=== PATIENT | female | born 1970 | race Caucasian/White ===

== ENCOUNTER 2022-03-26 11:24 | Outpatient (CLI) | payer BC, SELFPAY ==
[2022-03-26 20:14] LABS: Kit Draw Collected
== END 2022-03-26 11:25 | disposition home or self-care (01) ==
LOC: ANHGOSHLAB 11:26
PROVIDERS: PCP Family Medicine; Visit Provider Family Medicine
DX: Z00.00 Encounter for general adult medical examination without abnormal findings (principal); E03.9 Hypothyroidism, unspecified
CPT/HCPCS: 36415

== ENCOUNTER 2022-04-03 13:39 | Outpatient (CLI) | payer BC, SELFPAY ==
[2022-04-03 16:00] LABS: Kit Draw Collected
== END 2022-04-03 13:40 | disposition home or self-care (01) ==
LOC: ANHGOSHLAB 13:40
PROVIDERS: PCP Family Medicine; Visit Provider Family Medicine
DX: E78.2 Mixed hyperlipidemia (principal)
CPT/HCPCS: 36415

== ENCOUNTER 2023-07-11 10:26 | Emergency (ER) | payer BC, SELFPAY ==
[2023-07-11 10:39] VITALS: BP 109/79; PULSE 82; RESP 16; TEMP 36.4; O2SAT 100
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
[2023-07-11] MEDS: ONDANSETRON HCL ODT 4 MG TABLET SUBLINGUAL (11:27)
[2023-07-11] MEDS: predniSONE 20 MG TABLET 40 MG PO (11:28)
[2023-07-11] MEDS: MECLIZINE HCL 25 MG TABLET PO (11:29)
== END 2023-07-11 12:00 | disposition home or self-care (01) ==
PROVIDERS: Emergency Provider Nurse Practitioner Family; PCP Family Medicine
DX: R42 Dizziness and giddiness (principal); E03.9 Hypothyroidism, unspecified
CPT/HCPCS: 99213; A9270; G0463; J7512

== ENCOUNTER 2023-10-14 11:54 | Outpatient (CLI) | payer BC, SELFPAY ==
--- NOTE | ~2023-10-14 | MM_ITS ---
EXAMINATION: MM screening corry BI w edgard HISTORY: Screening TECHNIQUE: Craniocaudal and mediolateral oblique 3-D tomosynthesis images were obtained and synthetic 2-D images were generated. CAD analysis was submitted and interpreted. COMPARISON: No prior mammogram is available for comparison at this institution. BREAST PARENCHYMAL COMPOSITION: Dense: The breasts are extremely dense, which lowers the sensitivity of mammography. FINDINGS: There is no evidence of suspicious mass, calcification, or architectural distortion to sugg est malignancy in either breast. There has been no suspicious interval change. IMPRESSION: 1. No mammographic evidence of malignancy. 2. Recommend routine screening mammography in one year. BI-RADS Category 1: Negative Reviewed, dictated and finalized at location B.
== END 2023-10-14 11:55 | disposition home or self-care (01) ==
PROVIDERS: PCP Family Medicine; Visit Provider Family Medicine
DX: Z12.31 Encounter for screening mammogram for malignant neoplasm of breast (principal)
CPT/HCPCS: 77063; 77067

== ENCOUNTER 2023-12-03 23:42 | Emergency (ER) | payer BC, SELFPAY ==
[2023-12-03 23:45] VITALS: BP 116/75; PULSE 67
[2023-12-03 23:53] VITALS: BP 130/75; PULSE 89; TEMP 36.5; O2SAT 97
[2023-12-03 23:54] LABS: BEDSIDEPREGUCG Negative (Negative)
[2023-12-03 23:57] VITALS: BP 130/75; PULSE 80; RESP 16; TEMP 36.7; O2SAT 97
[2023-12-04 00:04] LABS: Basophils Percent Auto 0.4 % (0.2-1.2); Eosinophils Absolute Auto 0.4 K/mm3 (0-0.3); Eosinophils Percent Auto 3.3 % (0-4.4); Hematocrit 43.9 % (37.0-47.0); Hemoglobin 14.8 g/dL (12.0-15.0); Immature Granulocyte Absolute 0.04 K/mm3 (0.00-0.031); Immature Granulocyte Percent A 0.4 % (0-0.5); Lymphocytes Percent Auto 25.9 % (18.3-44.2); Mean Corpuscular HGB Conc 33.7 g/dl (32-36); Mean Platelet Volume 8.8 fl (7.4-10.4); Monocytes Percent Auto 9.2 % (2.6-8.5); Neutrophils Absolute Auto 6.8 K/mm3 (1.3-6.7); Neutrophils Percent Auto 60.8 % (45.5-73.1); Platelet Count Result 352 k/mm3 (150-375); Red Blood Count 4.93 M/mm3 (4.2-5.4); Red Cell Distribution Width 13.1 % (11.5-14.5); White Blood Count 11.2 K/mm3 (4.5-10.0)
--- NOTE | 2023-12-04 00:05 | ED.GENADULT ---
HPI - General Adult General Chief complaint: Nausea/Vomiting/Diarrhea Stated complaint: n/v, chills/fever Time Seen by Provider: 12/03/23 23:44 History of Present Illness HPI narrative: 53-year-old female presenting to the emergency department for evaluation for acute onset of dizziness. Patient states that she has had previous issues with vertigo but they resolved on her own. Patient did have you go yesterday and states that her symptoms started after doing yoga. Patient describes some mild dizziness but then today had worsening dizziness with associated nausea and vomiting. Patient denies any associated numbness or weakness. Patient denies any prior history of CVA. Related Data Home Medications Medication Instructions Recorded Confirmed clindamycin 1.2 % (1 % topical 08/27/23 10/29/23 base)-benzoyl peroxide 5 % topical gel clobetasol 0.05 % topical ointment topical 08/27/23 10/29/23 tazarotene 0.05 % topical cream applic topical 08/27/23 10/29/23 (Tazorac) Allergies Allergy/AdvReac Type Severity Reaction Status Date / Time No Known Allergies Allergy Verified 10/29/23 12:58 Review of Systems Review of Systems: All systems reviewed & are unremarkable except as noted in HPI and below PMFSH Past Medical History Medical History Carpal tunnel syndrome, bilateral upper limbs delivery delivered Hypothyroidism (acquired) Menometrorrhagia Seasonal allergic rhinitis Telogen effluvium Surgical History Surgical History History of cholecystectomy Family History Family History Grandparent Family history of Alzheimer's disease Mother Patient's mother is in good health Family history of alcoholism Father Patient's father is in good health Family history of alcoholism Family history of diabetes mellitus in first degree relative Sibling Patient's brother is in good health Social History Social History Smoking status: Never smoker Alcohol intake: current Substance use: never Lack of Transportation: No Lack of Food: Never True Current Housing: I Have Housing Concerned About Future Housing: No Difficulty Paying Gas/Electric Bills: No Difficulty Paying for Meds: No Currently Unemployed: No Difficulty w/ Childcare or Family Care: No Exam Narrative: APPEARANCE: Well appearing, no pain, no distress, well-nourished. HEAD: normocephalic, atraumatic. EYES: PERRLA/EOMI, conjunctivae clear. NOSE: Normal no drainage EARS:TMS clear with good light reflex. THROAT: Pharynx clear, no exudate. NECK: Supple. No adenopathy, no masses. RESPIRATORY: Airway patent, respirations nonlabored. Clear to auscultation bilaterally, no rales, rhonchi, wheezing. CARDIOVASCULAR: Regular rate and rhythm without murmurs rubs or gallops. ABDOMINAL: Soft, nontender, nondistended, normal bowel sounds MUSCULOSKELETAL: Moves all extremities. Strength/ROM intact, No edema, No calf tenderness. NEURO: Alert. Cranial nerves II through XII intact. Good gait. Good coordination SKIN: Warm, dry. Normal Color Course Course Emergency Course: Patient felt improved with treatment was discharged home. Vital Signs Vital signs: Vital Signs Pulse Rate 67 12/03/23 23:45 Blood Pressure 116/75 12/03/23 23:45 Temperature 98.3 F 12/04/23 01:21 Pulse Rate 75 12/04/23 01:21 Respiratory Rate 16 12/04/23 01:21 Blood Pressure 108/73 12/04/23 01:21 Pulse Oximetry 97 12/04/23 01:21 Oxygen Delivery Room Air 12/03/23 23:57 Medical Decision Making [facility] Narrative Medical decision making narrative: A 53-year-old female present to the emergency department for evaluation for dizziness. Patient does describe benign positional vertigo which is most like
[2023-12-04 00:10] LABS: Add Urine Microscopic? YES; Appearance Urine Turbid (Clear); Bacteria Urine 1+ /hpf; Bilirubin Urine Negative (Negative); Blood Urine Negative (Negative); Color Urine Yellow (Yellow); Glucose Urine UA Negative (Negative); Ketones Urine Trace mg/dL (Negative); Leukocyte Esterase Ur Trace LEU/UL (Negative); Nitrate Urine Negative (Negative); Protein Urine Trace mg/dL (Negative); Specific Grav Ur 1.022 (1.001-1.035); Squamous Epithelial Cell Urine Moderate /hpf (Few); WBC Urine 0-5 /hpf (0-3)
[2023-12-04 00:11] VITALS: BP 116/77; PULSE 68
[2023-12-04 00:13] VITALS: BP 106/85; PULSE 79
[2023-12-04 00:17] LABS: Alanine Aminotransferase 17 U/L (6-35); Albumin Level 4.7 g/dL (3.5-5.1); Alkaline Phosphatase 62 U/L (38-126); Anion Gap 16 mmol/L (4-12); Aspartate Amino Transferase 30 U/L (14-36); Bilirubin,Total 0.9 mg/dL (0.2-1.3); Blood Urea Nitrogen 15 mg/dL (7-17); Calcium 9.7 mg/dL (8.4-10.2); Carbon Dioxide 24 mmol/L (22-30); Chloride 93 mmol/L (98-107); Estimated CRCL calculation 73 ml/min; Estimated Glomerular Filt Rate > 60; Glucose 105 mg/dL (65-110); Lipase 243 U/L (23-300); Sodium 133 mmol/L (137-145)
[2023-12-04] MEDS: MECLIZINE HCL 25 MG TABLET PO (00:20)
[2023-12-04] MEDS: ONDANSETRON INJ 4 MG/2 ML VIAL IV PUSH (00:20)
[2023-12-04 00:29] LABS: Potassium 3.4 mmol/L (3.4-5.0)
[2023-12-04] MEDS: diazePAM INJ (*CRX) 10 MG/2 ML SYRINGE 2.5 MG IV PUSH (00:51)
[2023-12-04] MEDS: METOCLOPRAMIDE HCL INJ 10 MG/2 ML VIAL IV PUSH (00:51)
[2023-12-04 01:21] VITALS: BP 108/73; PULSE 75; RESP 16; TEMP 36.8; O2SAT 97
== END 2023-12-04 01:35 | disposition home or self-care (01) ==
PROVIDERS: Emergency Provider Emergency Medicine; PCP Family Medicine
DX: R42 Dizziness and giddiness (principal); E03.9 Hypothyroidism, unspecified
CPT/HCPCS: 36415; 80053; 81001; 81025; 83690; 85025; 96374; 96375; 99284; A9270; J2405; J2765; J3360

== ENCOUNTER 2024-03-23 09:00 | Outpatient (RCR) | payer BC, SELFPAY ==
--- NOTE | 2024-01-08 08:57 | OPREHPOC ---
Outpatient Therapy Plan of Care This is a Multidisciplinary Plan of Care that may contain components documented by all disciplines (PT, OT, and ST.) PT Problem 1 PT Problem #1 Knowledge Deficit PT Goal 1 Goal / Goal Update *indep with HEP Target Visit 8 PT Problem 2 PT Problem #2 Impaired Vestibular System PT Goal 1 Goal / Goal Update decrease in vestibular symptoms, to improve mobility and activity level: pt perform without any issues: 1* roll in supine R/L 2* walk 50' with head motions R and L 3x each 3* pt brain picker item off floor 4* Dizziness Handicap Index rating of 16. 5* further assessment of vestibular system as treatment progresses Target Visit 8
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
--- NOTE | 2024-02-19 09:17 | PCPTNOTE ---
Late entry for 01/28/24: Pt received STM to bilateral upper traps, levator scap, scalenes and fascia of scalp. Pt received a release with occipital release, 1st rib mobilization and passtive stretching for B UT and levator scap. STM was preformed to decrease tension, improve cervical mobility and to ease vestibular issues.
--- NOTE | 2024-03-16 12:02 | PCPTNOTE ---
Pt NS visit today, left message with next appt. day and time.
--- NOTE | 2024-03-23 09:47 | PTOPPROG ---
Assessment and note entered by Evin Leslie Assessment Status Progress ICD-10 Condition Codes (PT) Dizziness and Giddiness R42,BPPV H81.12 Onset 12-04-23 Subjective Information still having dizziness when lie down in bed and with turning my head to the L, last about 10 seconds; is doing the neck exercises and watching her posture; have not tried the maneuver at home for dizziness- did initially and it did not help, so did not try again; have not returned to yoga and exercises, afraid it will cause a full, blown out dizziness episode. Allergies have been doing OK, some dryness with sleeping. Assessment PT Clinical Summary Nitza has received 6 PT sessions, from January 07 to today; she did not show for one appointment Treatment for vestibular issues and cervical pain. She has not yet returned to her normal fitness and activity level due to afraid of a full blown dizziness episode. Compared to the initial evaluation: no longer reports any cervical pain; Dizziness Handicap Index rating from 50% to 36% limitation in activity level; reports she continues to have dizziness with turning to L in bed and with lying down in bed; With the reassessment: she had unsteady feeling with leaning forward to pick something up off the floor; dizziness reported with mobility of walking and looking up, 360' turn to the L, rolling over in bed. Skilled PT services to continue for vestibular treatment for BPPV. Plan of Care Interventions Neuro Re-education,Patient/Caregiver Education, Therapeutic Activities,Therapeutic Exercise PT Services Indicated Yes Treatment Frequency and 1-2x/wk for 6 visits Duration These treatments will address the objective and functional deficits as defined above. The patient will be advanced safely and appropriately in order for the patient to progress towards his/her prior level of function. Additional exercises will be introduced and as well as a comprehensive home exercise program upon discharge, if needed, ?to ensure carryover of functional gains achieved in the clinic. This treatment plan has been reviewed and agreement upon by the patient.
--- NOTE | 2024-03-23 09:48 | OPREHPOC ---
Outpatient Therapy Plan of Care This is a Multidisciplinary Plan of Care that may contain components documented by all disciplines (PT, OT, and ST.) PT Problem 1 PT Problem #1 Knowledge Deficit PT Goal 1 Goal / Goal Update *indep with HEP 03-23-24 progress goal met; continue towards goal Target Visit 12 PT Problem 2 PT Problem #2 Impaired Vestibular System PT Goal 1 Goal / Goal Update decrease in vestibular symptoms, to improve mobility and activity level: pt perform without any issues: 1* roll in supine R/L 2* walk 50' with head motions R and L 3x each 3* pt pickle pumper item off floor 4* Dizziness Handicap Index rating of 16. 5* further assessment of vestibular system as treatment progresses 03-23-24 progress goals 2,5 met continue towards goals Target Visit 12
--- NOTE | 2024-03-29 14:21 | PCPTNOTE ---
This treatment is being continued on visit number [id number] Please see documentation on both accounts to view progress. Completed interventions, outcomes, and problems have been marked as Inactive to facilitate the copying of the Care plan routine for recurring accounts.
== END 2024-03-29 11:32 | disposition home or self-care (01) ==
LOC: ANHPT 09:00
PROVIDERS: PCP Family Medicine; Visit Provider Family Medicine
DX: H81.12 Benign paroxysmal vertigo, left ear (principal)
CPT/HCPCS: 95992; 97110; 97140; 97161; 97530

== ENCOUNTER 2024-04-07 01:01 | Day surgery (SDC) | payer BC, SELFPAY ==
[2024-03-24 13:25] VITALS: BMI 25.8
[2024-04-07 08:51] VITALS: BP 121/71; PULSE 98; RESP 18; TEMP 36.6; O2SAT 97
[2024-04-07] MEDS: LACTATED RINGERS 1,000 ML 150 ML IV CONT (09:06)
--- NOTE | 2024-04-07 09:17 | SUR.PREOP ---
pt unable to give a urine specimen. Hx of tubal ligation. Anesthesia notified. No urine needed per anesthesia.
--- NOTE | 2024-04-07 09:20 | P.PNAN_ITS ---
Anes - Initial Pre Proc Eval Procedure: Operation Date: 04/07/24 10:00 Proposed Procedures p Screening Colonoscopy - Koby Gil MD Date/Time: 04/07/24 09:20 Surgeon: Koby Gil MD Pre Op Diagnosis: screening colon Patient Data Age: 53 Gender: F Height: 1.65 m Weight: 70.6 kg Last Vital Signs Temp 36.6 C 04/07/24 08:51 Pulse 98 04/07/24 08:51 Resp 18 04/07/24 08:51 BP 121/71 04/07/24 08:51 Pulse Ox 97 04/07/24 08:51 O2 Del Method Room Air 04/07/24 08:51 Allergies Allergy/AdvReac Type Severity Reaction Status Date / Time No Known Allergies Allergy Verified 04/07/24 08:50 Home Medications ?Medication ?Instructions ?Recorded ?Confirmed ?Type bupropion HCl 300 mg 24 hr tablet, 300 mg PO QAM #90 tabs 08/27/23 04/07/24 Rx extended release clobetasol 0.05 % topical ointment 1 applic topical WEEKLY PRN 08/27/23 04/07/24 History vaginal dryness sertraline 50 mg tablet 50 mg PO DAILY #90 tabs 08/27/23 04/07/24 Rx tazarotene 0.05 % topical cream 1 applic topical DAILY PRN 08/27/23 03/25/24 History (Tazorac) psoriasis meclizine 25 mg tablet 25 mg PO TID PRN dizziness #20 tabs 12/04/23 03/25/24 Rx ondansetron 4 mg disintegrating 4 mg PO Q8H PRN nausea and 12/04/23 03/25/24 Rx tablet vomiting #14 tabs triamterene 37.5 See Rx Instructions .Route 01/30/24 04/07/24 Rx mg-hydrochlorothiazide 25 mg .COMPLEX #90 caps capsule Patient hx anesthesia problems: none Family hx anesthesia problems: none Results Review: All pre-operative results and documents have been reviewed as part of the pre- operative evaluation. [facility] Past Medical History Medical History Mixed hyperlipidemia Anxiety delivery delivered Carpal tunnel syndrome, bilateral upper limbs Hypothyroidism (acquired) Menometrorrhagia Seasonal allergic rhinitis Telogen effluvium Surgical History Surgical History History of cholecystectomy Family History Family History Grandparent Family history of Alzheimer's disease Mother Patient's mother is in good health Family history of alcoholism Father Patient's father is in good health Family history of alcoholism Family history of diabetes mellitus in first degree relative Sibling Patient's brother is in good health Social History Social History Smoking status: Never smoker Alcohol intake: current Substance use: never Substance use type: marijuana Other substance usage details: edibles Lack of Transportation: No Lack of Food: Never True Current Housing: I Have Housing Concerned About Future Housing: No Difficulty Paying Gas/Electric Bills: No Difficulty Paying for Meds: No Currently Unemployed: No Difficulty w/ Childcare or Family Care: No Living arrangements: with family Spiritual care concerns: No Anes - Eval Final PreProcedure Day of Procedure 04/07/24 09:20 Patient weight: overweight Heart: regular rate and rhythm Lungs: clear to auscultation Airway: Mallampati scale class II Neurological: alert and oriented Last oral intake: >/= 8 hours ASA classification: II Emergent: no Anesthetic plan: proceed Anesthesia type and monitoring: general GIVS Results Review: All pre-operative results and documents have been reviewed as part of the pre- operative evaluation. Informed Consent: The patient's anesthetic plan and its attendant risks and benefits were discussed with the patient/family/POA. Questions were solicited and answers provided to the satisfaction of the patient/family/POA.
--- NOTE | 2024-04-07 09:22 | PM.HPGS ---
History of Present Illness History of Present Illness Consent: Risks, benefits, and alternatives have been discussed and questions answered. Patient agrees to proceed with procedure. Chief complaint: screening colon Narrative: Nitza Babin is a 53 year old female with colon polyp when had first colonoscopy, second one about 4 years ago without any, here to repeat another colonoscopy Review of Systems Review of Systems: All systems reviewed & are unremarkable except as noted in HPI and below PMFSH Past Medical History Medical History Mixed hyperlipidemia Anxiety delivery delivered Carpal tunnel syndrome, bilateral upper limbs Hypothyroidism (acquired) Menometrorrhagia Seasonal allergic rhinitis Telogen effluvium Surgical History Surgical History History of cholecystectomy Family History Family History Grandparent Family history of Alzheimer's disease Mother Patient's mother is in good health Family history of alcoholism Father Patient's father is in good health Family history of alcoholism Family history of diabetes mellitus in first degree relative Sibling Patient's brother is in good health Social History Social History Smoking status: Never smoker Alcohol intake: current Substance use: never Substance use type: marijuana Other substance usage details: edibles Lack of Transportation: No Lack of Food: Never True Current Housing: I Have Housing Concerned About Future Housing: No Difficulty Paying Gas/Electric Bills: No Difficulty Paying for Meds: No Currently Unemployed: No Difficulty w/ Childcare or Family Care: No Living arrangements: with family Spiritual care concerns: No Meds Home Medications and Allergies Home Medications ?Medication ?Instructions ?Recorded ?Confirmed ?Type bupropion HCl 300 mg 24 hr tablet, 300 mg PO QAM #90 tabs 08/27/23 04/07/24 Rx extended release clobetasol 0.05 % topical ointment 1 applic topical WEEKLY PRN 08/27/23 04/07/24 History vaginal dryness sertraline 50 mg tablet 50 mg PO DAILY #90 tabs 08/27/23 04/07/24 Rx tazarotene 0.05 % topical cream 1 applic topical DAILY PRN 06/12/24 01/09/25 History (Tazorac) psoriasis meclizine 25 mg tablet 25 mg PO TID PRN dizziness #20 tabs 12/04/23 03/25/24 Rx ondansetron 4 mg disintegrating 4 mg PO Q8H PRN nausea and 12/04/23 03/25/24 Rx tablet vomiting #14 tabs triamterene 37.5 See Rx Instructions .Route 01/30/24 04/07/24 Rx mg-hydrochlorothiazide 25 mg .COMPLEX #90 caps capsule Allergies Allergy/AdvReac Type Severity Reaction Status Date / Time No Known Allergies Allergy Verified 04/07/24 08:50 Vital Signs Vital Signs - 24 hr 04/07/24 08:51 Temperature 97.8 F Pulse Rate 98 Respiratory Rate 18 Blood Pressure 121/71 Pulse Oximetry 97 Oxygen Delivery Room Air Exam Const: General: comfortable and no acute distress HENMT: Face/Nose/Sinus: Normal nares present Eyes: General: appearance normal, both eyes and all related structures Neck: Neck: no JVD Resp: Auscultation: clear to auscultation bilaterally Cardio: Rate: regular rate Rhythm: regular rhythm GI: Inspection: non-distended GI Palp: Yes Soft to palpation Skin: General skin exam: normal color Neuro: General: gait normal Speech: normal speech Extrem: General: normal to inspection Psych: Mental Status: mental status grossly normal Assessment and Plan Assessment and plan (1) Colon polyps: Code(s): K63.5 - Polyp of colon Status: Acute Assessment and Plan: colonoscopy
[2024-04-07 09:39] VITALS: BP 99/62; PULSE 83; RESP 18; O2SAT 99
[2024-04-07 09:49] VITALS: BP 112/51; PULSE 81; RESP 13; O2SAT 100
[2024-04-07 09:59] VITALS: BP 105/74; PULSE 74; RESP 18; O2SAT 100
--- OUTSIDE RECORDS SUMMARY | 2024-04-08 21:00 | XMS_ITS | Clinical Summary ---
Author Organization [facility] Address [address] [place] [address] Phone Care Team Providers Care Mushroom Spawn Maker Name Role Phone Jany Smith MD Primary Care Provider [phone] Allergies Active Allergy Reactions Criticality Noted Date Comments Levofloxacin Itching Medium Medications buPROPion XL (WELLBUTRIN XL) 300 mg 24 hr tablet Take 1 tablet (300 mg total) by mouth daily Active TRIAMTERENE-HYD ROCHLOROTHIAZID E 37.5-25 mg per capsule TK 1 C PO ONCE D IN THE MORNING 3 8 Active clindamycin-mary zoyl peroxide gel 4 Active Tazorac 0.05 % cream 4 Active glucosam-chondr oitin-diet cb25 116-100 mg capsule Take by mouth Active multivitamin tabletIndicatio ns:Vitamin Deficiency Prevention Take 1 tablet by mouth Active clobetasoL (TEMOVATE) 0.05 % ointmentIndicat ions:Lichen sclerosus et atrophicus Apply topically once a week For two weeks, daily for two weeks then twice weekly 15 g 2 4 Active Active Problems Problem Noted Date Diagnosed Date Postmenopausal bleeding 06/01/2023 Assessment & Plan (06/01/2023 4:20 PM CDT): Endometrial biopsy sent to pathology. Lichen sclerosus et atrophicus 06/01/2023 Assessment & Plan (07/01/2023 8:41 PM CDT): Continue clobetasol weekly. Assessment & Plan (06/01/2023 4:21 PM CDT): Clobetasol ointment Bid for two weeks, daily for 2 weeks then twice weekly. Return 4 weeks for recheck. Personal history of colonic polyps 07/06/2020 Family history of colonic polyps 04/23/2017 Encounter for gynecological examination without abnormal finding 12/12/2016 Assessment & Plan (07/01/2023 8:41 PM CDT): Pelvic exam and breast exam done. Schedule mammogram and Colonoscopy. Return in one year. Assessment & Plan (07/16/2021 11:02 AM CDT): Pelvic exam and breast exam done. No uterine or ovarian enlargement appreciated. Odilon will try to keep track and see if there is any cyclic pattern to her symptoms. Refill Kariva Return in one year. Assessment & Plan (05/28/2020 10:19 PM CDT): Pap smear and breast exam done. Mammogram is scheduled. Schedule colonoscopy Refill Kariva Return in one year. Assessment & Plan (02/11/2018 8:03 AM BIT SHARPENER): Pelvic exam and breast exam done. Calcium and vitamin D list provided Return in one year. Assessment & Plan (12/12/2016 8:15 AM CDT): Pap smear and breast exam done. Mammogram. Will f/u with PCP re bruising and rash on leg. Rtn in one year. Family history of colon cancer 12/12/2016 Assessment & Plan (12/12/2016 8:15 AM CDT): Schedule colonoscopy. GI list given to pt. LUIS (stress urinary incontinence, female) 2016 Assessment & Plan (12/12/2016 8:15 AM CDT): Kegel exercises Resolved Problems Problem Noted Date Diagnosed Date Resolved Date Menorrhagia with regular cycle 02/11/2018 06/30/2023 Assessment & Plan (02/11/2018 8:03 AM BIT SHARPENER): Discussed options for management of heavy periods including NSAIDs and Lysteda. Odilon will try NSAIDs. Fibroadenoma of breast 07/15/201112/12 Encounter for screening colonoscopy 07/16/2021 Immunizations Name Administration Dates Next Due Hep A, Adult 05/14/2017 Influenza, Quadrivalent, Rec ombinant, Egg Free, Preservative Free, Intramuscular 12/17/2019 Influenza, Quadrivalent, Split, Intramuscular Influenza, Quadrivalent, Spl it, Preservative Free, Intramuscular 01/08/2018 Influenza, Trivalent, IM (MDV) 11/12/2013 Influenza, Trivalent, Preservative Free, Intramu scular 12/03/2015 Influenza, Unspecified 11/16/2019 Surgical History Surgery Date Site/Laterality Comments HEMORRHOID SURGERY FISTULA REPAIR CHOLECYSTECTOMY TUBAL LIGATION SECTION 03/17/1990 - 03/16/1991 SECTION 03/17/2009 - 03/16/2010 BREAST LUMPECTOMY Right COLONOSCOPY 08/16/2020 POLYPECTOMY Medical History Medical History Date Comments Ectopic 2007 Spontaneous 2009 Fibroadenoma of breast 07/15/2011 Cholelithiasis PONV (postoperative nausea and vomiting) Colon polyp Depression 1990 2010 Family History Medical History Relation Name Comments Colon cancer Father Colon polyps Father's Brother Colon cancer Father's Sister Breast cancer Neg Hx Ovarian cancer Neg Hx Relation Name Status Comments Father Father's Brother Father's Sister Social History Tobacco Use Types Packs/Day Years Used Date Smoking Tobacco: Never Smokeless Tobacco: Never Tobacco Cessation:Counseling Given: Not Answered Alcohol Use Standard Drinks/Week Comments Yes 0 (1 standard drink = 0.6 oz pur e alcohol) socially AUDIT-C Answer Date Recorded Q1: How often do you have a drink containing alc ohol? 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 Not on file Not on file Not on file Obstetrics History Para Term AB IAB SAB Ectopic Multiple Livin g Live Births 4 2 2 2 1 1 1 3 3 Date Outcome GA Total Labor Labor/2nd/3rd Weight Sex Type Anes PTL Sandy A1 A5 Name Clin 1990 Term 37w3 d 2.807 kg (6 lb 3 oz) M CS-Un spec Living 1990 Term 37w3 d 2.892 kg (6 lb 6 oz) F CS-Un spec Living 2006 Ectopic 2009 SAB 2009 Term 39w0 d 3.487 kg (7 lb 11 oz) M CS-Un spec Living Last Filed Vital Signs Vital Sign Reading Time Taken Comments Blood Pressure 114/72 06/30/2023 10:34 AM CDT Pulse 78 08/16/2020 2:34 PM CDT Temperature 37.1 ??C (98.8 ??F) 08/16/2020 1:29 PM CD T Respiratory Rate 20 08/16/2020 2:34 PM CDT Oxygen Saturation 100% 08/16/2020 2:34 PM CDT Inhaled Oxygen Concentration - - Weight 70.8 kg (156 lb) 06/30/2023 10:34 AM CDT Height 165.1 cm (5' 5 ) 06/30/2023 10:34 AM CDT Body Mass Index 25.96 06/30/2023 10:34 AM CDT Plan of Treatment Health Maintenance Due Date Last Done Comments Hepatitis C Screening 1971 DTaP/Tdap/Td Vaccine (1 - Tdap) 10/25/1982 Hepatitis B Screening 10/25/1989 Cervical Cancer Screening 05/22/2021 05/22/2020 Depression Screening 05/22/2021 05/22/2020 Zoster Vaccine (1 of 2) 10/25/2021 Breast Cancer Screening-Mammogram 05/01/2022 05/01/2021, 05/01/2021, 05/01/2021, Additional history exists Covid-19 Vaccine () 11/16/2023 10/18/2020, 09/12/2020 Influenza Vaccine (#1) 2023 , 11/16/2019, 01/11/2019, Additional history exists Regular Well Visit/Exam 18-64 06/29/2024 06/30/2023, 07/16/2021, 05/22/2020, Additional history exists Colon Cancer Screening-Colonoscopy 08/16/2030 08/16/2020, 07/01/2017 Pneumococcal vaccine <65 Aged Out No longer eligible based on patient's age to complete this topic Procedures Procedure Name Priority Date/Time Associated Diagnosis Comments SCREENING MAMMOGRAM 2D BILATERAL Schedule Routine, Read Routine (OP Routine) 05/01/2021 COLONOSCOPY 08/16/2020 1:42 PM CDT PAP AND HIGH RISK HPV, REFLEX TO GENOTYPING Routine 05/22/2020 2:31 PM BIT SHARPENER Cervical cancer screening from Last 3 Months or Most Recently Relevant to Health Maintenance Results * Screening Mammogram 2D Bilateral (05/01/2021) Anatomical Region Laterality Modality Breast Bilateral Mammography us Jany Smith MD IMG MAMMO PROCEDURES Miriam l Result * COLONOSCOPY (08/16/2020 1:42 PM CDT) Anatomical Region Laterality Modality Other Narrative Procedure Note Alvin Lucas MD - 08/16/2020 1:42 PM CDT ENDOSCOPY LAB Patient Name: Odilon Babin Procedure Date: 08/16/2020 1:42 PM Admit Type: Outpatient Room: Endo 2 Date of : 1970 Instrument Name: [id number] Gender: Female Note Status: Finalized Procedure: Colonoscopy Indications: Screening in patient at increased risk: Familyhistory of 1st-degree relative with colorectal cancer,Colon cancer screening in patient at increased risk:Family history of colorectal cancer in multiple 2nd degree relatives. patient had an dneomatous polyp removed. 06/2017 Comorbidities No comorbidities Providers: Alvin Lucas M.D. Referring MD: Jany Smith M.D. Medicines: Propofol per Anesthesia Complications: No immediate complications. Estimated Blood Loss: Estimated blood loss: none. Procedure: Pre-Anesthesia Assessment: - The risks and benefits of the procedure and the sedation options and risks were discussed with the patient. All questions were answered and informed consent was obtained. The benefits, risks and alternatives of theprocedure and sedation were discussed and informed consentwas obtained. All questions were answered. Please referto the signed informed consent document in the medical record. The scope was passed under direct vision.The Colonoscope was introduced through the anus and advanced to the the terminal ileum, with identification of the appendiceal orifice and IC valve. The colonoscopy was performed without difficulty. The patient tolerated the procedurewell. The quality of the bowel preparation was good. The quality of the bowel preparation was evaluatedusing the BBPS ([place] Bowel Preparation Scale) withscores of: Right Colon = 3 (entire mucosa seen well withno residual staining, small fragments of stool oropaque liquid), Transverse Colon = 3 (entire mucosa seenwell with no residual staining, small fragments of stoolor opaque liquid) and Left Colon = 3 (entire mucosaseen well with no residual staining, small fragments of stool or opaque liquid). The total BBPS scoreequals 9. The quality of the bowel preparation wasexcellent. The bowel preparation used was polyethylene glycol (PEG) via split dose instruction. Findings: The entire examined colon appeared normal on direct and retroflexion views. No polyps. No colon cancer. Impression: - The entire examined colon is normal on direct and retroflexion views. - No specimens collected. Recommendation: - Repeat colonoscopy in 5 years for screeningpurposes. Electronically signed by Alvin Lucas MD Alvin Lucas M.D. 08/16/2020 2:26:02 PM This document was signed electronically. Number of Addenda: 0 Note Initiated On: 08/16/2020 1:42 PM Scope In: Scope Out: us Alvin Lucas MD ENDOSCOPY PROCEDURES Final Result * Pap and High Risk HPV, reflex to Genotyping (05/22/2020 2:31 PM BIT SHARPENER) Clinical indication Comment [facility] - 01 Comment:NEGATIVE FOR INTRAEP ITHELIAL LESION OR MALIGNANCY. Specimen adequacy: Comment [facility] - 01 Comment:Satisfactory for artem luation. No endocervical component is identified. Clinician provided ICD10 Comment [facility] - 01 Comment:Z12.4 Performed by Comment [facility] - 01 Comment:[place]yenne Voss, Cytote chnologist (ASCP) . . [facility] - 01 Note: Comment [facility] - 01 Comment: The Pap smear is a screening test designed to aid in the detection of premalignant and malignant conditions of the uterine cervix. ??It is not a diagnostic procedure and should not be used as the sole means of detecting cervical cancer. ??Both false-positive and false-negative reports do occur. Test methodology Comment [facility] - 01 Comment: This liquid based ThinPrep(R) pap test was screened with the use of an image guided system. HPV Aptima Negative Negative [facility] 02 Comment: This nucleic acid amplification test detects fourteen high-risk HPV types (16,18,31,33,35,39,45,51,52,56,58,59,66,68) without differentiation. Swab 05/22/2020 2:31 PM BIT SHARPENER 05/22/2020 Narrative [facility] - 05/24/2020 1:08 PM BIT SHARPENER Performed at: ??01 - [facility] [address], [place] ??[id number] [employer]: Laura Kee MD, Phone: ??[phone] Performed at: ??02 - [facility] [address], [place] ??[id number] [employer]: Laura Kee MD, Phone: ??[phone] Specimen Comment: [id number] Specimen Comment: No. of containers..01 ThinPrep Vial us Jany Smith MD LAB CYTOLOGY ORDERABLES F inal Result [facility] - 01 [facility] 02 from Last 3 Months or Most Recently Relevant to Health Maintenance Insurance [facility] [place] [facility] [place] Advance Directives For more information, please contact: [phone] * Full Code (Latest Code Status on File) Date Activated Date Inactivated Comments 08/16/2020 1:30 PM 08/16/2020 6:53 PM * Full Code Date Activated Date Inactivated Comments 07/01/2017 11:16 AM 07/01/2017 3:12 PM Care Teams Mushroom Spawn Maker Relationship Specialty Start Date End Date Jany Smith MD [address] [address] PCP - General 08/16/20
--- OUTSIDE RECORDS SUMMARY | 2024-04-08 21:00 | XMS_ITS | Clinical Summary ---
Author Organization [facility] Address [address] [place] [address] Care Team Providers Care Regional Facilities Specialist Name Role Phone Angelica Bhandari MD Primary Care Provider [phone] Source Comments [facility],non-owned Affiliates and Associated Physician Practices is amultiple site organization consisting of ambulatory clinics and hospital sitesin [place], [place], [place] and [place]. This disclosure is being madepursuant to the Care Everywhere program and may not contain all information available regarding this patient. Last updated 17.[facility] Allergies Active Allergy Reactions Criticality Noted Date Comments Levofloxacin Itching Medium Reaction: ITCHING, Reaction: ITCHING Medications * Be aware that medications may not be up to date on this document. Alwaysverify current medications with the patient. Medication Sig Dispensed Refills Start Date End Date Status buPROPion XL 24hr (WELLBUTRIN-XL) 300 MG tablet Take 300 mg by mouth. 12/20/2016 Active levothyroxine (SYNTHROID) 50 MCG tablet TK 1 T PO QD 1 06/03/2017 Active triamterene-hydroCHLO ROthiazide (DYAZIDE) 37.5-25 MG capsule TK 1 C PO ONCE D IN THE MORNING 3 06/11/2017 Active cloNIDine (CATAPRES) 0.2 MG tablet TK 1 T PO QHS 01/17/2020 Active venlafaxine (EFFEXOR) 37.5 MG tablet TK 1 T PO D 01/26/2020 Active fluorouracil (EFUDEX) 5 % creamIndications:Acti eneida skin damage Apply to affected area twice daily for two weeks. 40 g 07/11/2020 Active tazarotene (Tazorac) 0.05 % creamIndications:Acne vulgaris Pea sized amount to entire face at night.. 30 days supply. 30 g 5 04/01/2023 Active clindamycin-benzoyl peroxide (Duac) 1.2-5 % gelIndications:Acne vulgaris Apply to affected area once daily Apply to face and torso for acne once daily 45 g 5 04/01/2023 Active Active Problems Problem Noted Date Diagnosed Date Menorrhagia with regular cycle 02/11/2018 Overview (04/14/2020): Last Assessment & Plan: Discussed options for management of heavy periods including NSAIDs and Lysteda. Nitza will try NSAIDs. Multiple benign nevi of uppe r extremity, lower extremity, and trunk 06/27/2017 Assessment & Plan (07/13/2020 12:38 PM CDT): None worrisome Self exams Photoprotection encouraged Assessment & Plan (04/14/2020 10:32 AM SENIOR SAS DEVELOPER): None worrisome Self exams Photoprotection Family history of colonic polyps 04/23/2017 Family history of colon cancer 12/12/2016 Overview (04/14/2020): Last Assessment & Plan: Schedule colonoscopy. GI list given to pt. 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 (F LUZONE; FLULAVAL; FLUARIX; AFLURIA QUADRIVALENT; 6MO+), 0.5 ML (IIV4) 01/11/2019 Family History Medical History Relation Name Comments Asthma Neg Hx CVA Neg Hx Cancer - Breast Neg Hx Cancer - Other Neg Hx Cancer - Skin, Melanoma Neg Hx Cancer - Skin, Non Melanoma Neg Hx Eczema Neg Hx Hemophilia Neg Hx Psoriasis Neg Hx Social History Tobacco Use Types Packs/Day Years Used Date Smoking Tobacco: Never Smokeless Tobacco: Never Tobacco Cessation:Counseling Given: Not Answered Alcohol Use Standard Drinks/Week Comments Yes 0 (1 standard drink = 0.6 oz pur e alcohol) Sex and Gender Information Value Date Recorded Sex Assigned at Not on file Gender Identity Not on file Sexual Orientation Not on file Plan of Treatment Health Maintenance Due Date Last Done Comments COLOGUARD (AGES 45-75) - COLON CA SCREENING 1971 COLON MONITORING 1971 COLONOSCOPY - COLON CA SCREENING 1971 CT COLONOGRAPHY - COLON CA SCREENING 1971 Colorectal Cancer Screening 1971 FIT - COLON CA SCREENING 1971 FLEX SIG - COLON CA SCREENING 1971 LIPID TESTING 1971 PAP SMEAR 1971 HIV SCREENING 10/25/1986 HEPATITIS C SCREENING 10/21/1989 DTAP/TDAP/TD VACCINES (1 - Tdap) 10/25/1990 HEPATITIS B VACCINE (1 of 3 - 19+ 3-dose series) 10/25/1990 PNEUMOCOCCAL VACCINE 50+ (1 of 1 - PCV) 10/25/2021 ZOSTER VACCINE (1 of 2) 10/25/2021 MAMMOGRAM 05/01/2023 05/01/2021, 04/17, 12/29/2017, Additional history exists COVID-19 VACCINE (1 - 2023- season) 2023 INFLUENZA VACCINE (#1) 2023 0, 11/16/2019, 01/11/2019, Additional history exists DEPRESSION SCREENING 03/17/2024 HIB VACCINE Aged Out No longer eligi ble based on patient's age to complete this topic HPV VACCINE Aged Out No longer eligi ble based on patient's age to complete this topic MENINGOCOCCAL (Group B) VACCINE Aged Out No longer eligible based on patient's age to complete this topic MENINGOCOCCAL VACCINE Aged Out No abilio anson eligible based on patient's age to complete this topic PNEUMOCOCCAL VACCINE Aged Out No long er eligible based on patient's age to complete this topic Care Teams Regional Facilities Specialist Relationship Specialty Start Date End Date Angelica Bhandari MD [address] [place] [address] PCP - General Family Medicine 04/01/23
--- OUTSIDE RECORDS SUMMARY | 2024-04-08 21:00 | XMS_ITS | Referral Summary ---
Author Organization [facility] Address [address] [place] [address] Care Team Providers Care Print Traffic Manager Name Role Phone Angelica Bhandari MD Primary Care Provider [phone] Source Comments [facility],non-owned Affiliates and Associated Physician Practices is amultiple site organization consisting of ambulatory clinics and hospital sitesin [place], [place], [place] and [place]. This disclosure is being madepursuant to the Care Everywhere program and may not contain all information available regarding this patient. Last updated 17.[facility] Allergies Active Allergy Reactions Criticality Noted Date [...] encouraged Assessment & Plan (04/14/2020 10:32 AM ROR ENGINEER): None worrisome Self exams Photoprotection Family history of colonic polyps 04/23/2017 Family history of colon cancer 12/12/2016 Overview (04/14/2020): Last Assessment & Plan: Schedule colonoscopy. GI list given to pt. 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 (F LUZONE; FLULAVAL; FLUARIX; AFLURIA QUADRIVALENT; 6MO+), 0.5 ML (IIV4) 01/11/2019 Social History Tobacco Use Types Packs/Day Years Used Date Smoking Tobacco: Never Smokeless Tobacco: Never Tobacco Cessation:Counseling Given: Not Answered Alcohol Use Standard Drinks/Week Comments Yes 0 (1 standard drink = 0.6 oz pur e alcohol) Sex and Gender Information Value Date Recorded Sex Assigned at Not on file Gender Identity Not on file Sexual Orientation Not on file Plan of Treatment Not on file Care Teams Print Traffic Manager Relationship Specialty Start Date End Date Angelica Bhandari MD [address] [place] [id number] PCP - General Family Medicine 04/01/23
--- OUTSIDE RECORDS SUMMARY | 2024-04-08 21:00 | XMS_ITS | Patient Health Summary ---
Author Organization [facility] Address [address] [place] [address] Care Team Providers Care Casting And Locker Room Servicer Name Role Phone Angelica Bhandari MD Primary Care Provider [phone] Note from [facility],non-owned Affiliates and Associated Physician Practices is amultiple site organization consisting of ambulatory clinics and hospital sitesin [place], [place], [place] and [place]. This disclosure is being madepursuant to the Care Everywhere program and may not contain all information available regarding this patient. Last updated 17.[facility] Allergies * Levofloxacin(Itching) -Medium Criticality Medications * Be aware that medications may not be up to date on this document. Alwaysverify current medications with the patient. * buPROPion XL 24hr (WELLBUTRIN-XL) 300 MG tablet(Started 12/20/2016) Take 300 mg by mouth. * levothyroxine (SYNTHROID) 50 MCG tablet(Started 06/03/2017) TK 1 T PO QD 1 refill left * triamterene-hydroCHLOROthiazide (DYAZIDE) 37.5-25 MG capsule(Started 06/11/2017) TK 1 C PO ONCE D IN THE MORNING 3 refills left * cloNIDine (CATAPRES) 0.2 MG tablet(Started 01/17/2020) TK 1 T PO QHS * venlafaxine (EFFEXOR) 37.5 MG tablet(Started 01/26/2020) TK 1 T PO D * fluorouracil (EFUDEX) 5 % cream(Started 07/11/2020) Apply to affected area twice daily for two weeks. * tazarotene (Tazorac) 0.05 % cream(Started 04/01/2023) Pea sized amount to entire face at night.. 30 days supply. 5 refills by 03/31/2024 * clindamycin-benzoyl peroxide (Duac) 1.2-5 % gel(Started 04/01/2023) Apply to affected area once daily Apply to face and torso for acne once daily 5 refills by 03/31/2024 Active Problems Problem Noted Date Diagnosed Date Menorrhagia with regular cycle 02/11/2018 Multiple benign nevi of uppe r extremity, lower extremity, and trunk 06/27/2017 Family history of colonic polyps 04/23/2017 Family history of colon cancer 12/12/2016 LUIS (stress urinary incontinence, female) 2016 Other bed bug exterminator (current) drug therapy 5 Acne vulgaris 07/28/2013 Immunizations * INFLUENZA VACCINE(Given 11/16/2019) * INFLUENZA VACCINE, QUADR. (FLUZONE; FLULAVAL; FLUARIX; AFLURIA QUADRIVALENT; 6MO+), 0.5 ML (IIV4)(Given 01/11/2019) Social History Tobacco Use Types Packs/Day Years Used Date Smoking Tobacco: Never Smokeless Tobacco: Never Tobacco Cessation:Counseling Given: Not Answered Alcohol Use Standard Drinks/Week Comments Yes 0 (1 standard drink = 0.6 oz pur e alcohol) Sex and Gender Information Value Date Recorded Sex Assigned at Not on file Gender Identity Not on file Sexual Orientation Not on file Procedures * KS DESTROY PREMALIG LESION, 2-14(Performed 04/01/2023) Performed for Actinic keratosis * KS DESTROY PREMALIG LESION, 1ST LESION(Performed 04/01/2023) Performed for Actinic keratosis * KS DESTROY PREMALIG LESION, 2-14(Performed 04/14/2020) Performed for Actinic keratosis * KS DESTROY PREMALIG LESION, 1ST LESION(Performed 04/14/2020) Performed for Actinic keratosis * KS BIOPSY, EACH ADDED LESION(Performed 06/30/2017) Performed for Neoplasm of uncertain behavior of skin * KS BIOPSY OF SKIN LESION(Performed 06/30/2017) Performed for Neoplasm of uncertain behavior of skin * DERMATOPATHOLOGY(Performed 06/27/2017) Performed for Neoplasm of uncertain behavior of skin * DERMATOPATHOLOGY(Performed 12/09/2014) * DERMATOPATHOLOGY(Performed 08/16/2014) * FUNGUS ADALID - POINT OF CARE (AMB) [facility](Performed 12/24/2013) * CULTURE AEROBIC(Performed 12/24/2013) * POTASSIUM BLOOD(Performed 10/29/2013) * CULTURE AEROBIC(Performed 07/28/2013) * BASIC METABOLIC PANEL (CALCIUM TOTAL)(Performed 11/02/2012) * BASIC METABOLIC PANEL (CALCIUM TOTAL)(Performed 07/31/2011) * BASIC METABOLIC PANEL (CALCIUM TOTAL)(Performed 03/20/2011) * LAB HISTORICAL RESULTS-ONBASE(Performed 03/20/2011) Results * KS DESTROY PREMALIG LESION, 1ST LESION, KS DESTROY PREMALIG LESION, 2-14 (04/01/2023 10:59 AM LASER ENGRAVER) Narrative Chuck Raymundo PA-C - 04/01/2023 10:59 AM LASER ENGRAVER Chuck Raymundo PA-C ? 04/01/2023 12:21 PM Derm - Destruction Pre-malignant Date/Time: 04/01/2023 10:59 AM Performed by: Chuck Raymundo PA-C Authorized by: Lexy Camacho PA ?? Consent given by: patient Consent type: verbal Risks discussed with patient: scar formation, skin color change, need for further testing/treatment, pain, blistering and infection. Consent type: verbal Procedure details: Location information Left forehead x 1 Chest x 2 Right shoulder x 1 ??Number of standard lesions: 4 Total number of lesions: 4 Destruction method: cryotherapy ?? Cryotherapy cycles: 1 Cryotherapy time per cycle (seconds): 5-7 Complications: none Wound care discussed with patient? yes Lexy FRANCO PROCEDURE/MINOR SURG ICAL ORDERABLES * KS DESTROY PREMALIG LESION, 1ST LESION, KS DESTROY PREMALIG LESION, 2-14 (04/14/2020 10:34 AM LASER ENGRAVER) Narrative Lexy Camacho PA - 04/14/2020 10:34 AM LASER ENGRAVER Lexy Camacho PA ? 04/14/2020 10:45 AM Diagnosis and treatment options discussed. Cryotherapy (Liquid Nitrogen) to 2 chest ??lesions for 5-7 seconds each. Number of cycles: 1. Wound care reviewed. Lexy FRANCO PROCEDURE/MINOR SURG ICAL ORDERABLES * KS BIOPSY OF SKIN LESION, KS BIOPSY, EACH ADDED LESION (06/30/2017 12:18 PM CDT) Narrative Concepción Burton MD - 06/30/2017 12:18 PM CDT Lexy Camacho PA ? 06/30/2017 12:01 PM Risks, benefits and alternatives to punch biopsy were discussed with the patient. Verbal consent was obtained. Location: left FA, left upper back Punch biopsy: 4mm Skin prep: Alcohol Anesthesia: 1% lidocaine with epinephrine Closure: 4-0 nylon suture Dressing and wound care discussed. Patient agrees to phone call for results and message if not available. Yes Lexy FRANCO PROCEDURE/MINOR SURG ICAL ORDERABLES * DERMATOPATHOLOGY (Specimen Count = 2) (06/27/2017 12:00 AM CDT) Only the most recent of3 resultswithin the time period is included. Case Report Dermatopathology Report ? Case: [id number] ? Authorizing Provider: ??Lexy Camacho PA ?Collected: ? 06/27/2017 12:00 AM ? Ordering Location: ? [facility] ?Received: ?06/27/2017 01:01 PM ? Dermatology ? Pathologist: ? Jany Oliva MD ? Specimens: ?? A) - Skin, left back ? B) - Skin, left FA ? 12:07 PM T DERMATOPATHOLOGY LABORATORY Final Diagnosis Specimen A. SKIN, left back: EPIDERMOID CYST (L72.0) Specimen B. SKIN, left FA: DERMATOFIBROMA (D23.9) 8 12:07 PM [facility] DERMATOPATHOLOGY LABORATORY Clinical History A: Cyst vs dilated pore of kacy. B: DF vs PN. 12:07 PM T DERMATOPATHOLOGY LABORATORY Gross Description Specimen: A: Received is one formalin filled container labeled with the patient's name and designated left back. The specimen consists of a punch biopsy measuring [id number], bisected. Jar 0. Specimen: B: Received is one formalin filled container labeled with the patient's name and designated left FA. The specimen consists of a punch biopsy measuring [id number], bisected. Jar 0. 12:07 PM [facility] DERMATOPATHOLOGY LABORATORY Microscopic Description Specimen A. SKIN, left back: Within the dermis, there is a space lined by epithelium that resembles normal epidermis and the infundibular portion of the hair follicle. Specimen B. SKIN, left FA: There is epidermal hyperplasia. Within the dermis, there are fibrohistiocytic cells in haphazard array among coarse collagen bundles. 8 12:07 PM CDT DERMATOPATHOLOGY LABORATORY Disclaimer An external and internal positive and negative controls are appropriate for the histochemical, immunohistochemical and immunofluorescence stain(s) in this case (if any), except where stated explicitly. The performance characteristics of the stain(s) cited in this report were developed and its performance characteristic determined by the Dermatopathology Laboratory at [facility]. These tests need not be, and therefore are not, approved by the [place] Food and Drug Administration. The tests are used for clinical purposes. Billing Codes Specimen Charges Stain Charges 29584 82001 1 1 8 12:07 PM CDT DERMATOPATHOLOGY LABORATORY Embedded Images 8 12:07 PM CDT DERMATOPATHOLOGY LABORATORY Pathology/Cytology TISSUE SPECIMEN FROM SKIN / Unknown 06/27/2017 06/27/2017 1:01 PM CDT Miscellaneous samples (specimen) TISSUE SPECIMEN FROM SKIN / Unknown 06/27/2017 06/27/2017 1:01 PM CDT Lexy FRANCO LAB - PATHOLOGY/CYTO LOGY ORDERABLES DERMATOPATHOLOGY LABORATORY [facility] - Department of Dermatology [address] [place] [address] [address] [phone] * FUNGUS ADALID - POINT OF CARE (AMB) [facility] (12/24/2013) ADALID Prep negative [facility] Fluid specimen (specimen) 12/24/2013 Lexy FRANCO LAB - POINT OF CARE ORDERABLES [facility] * CULTURE AEROBIC (12/24/2013 12:00 AM CDT) Only the most recent of2 resultswithin the time period is included. Aerobic Bacterial Culture Final report [facility] (BEAKER) Result 1 Mixed skin murali [facility] (BEAKER) Skin (tissue) specimen (specimen) 12/24/2013 12/24/2013 9:04 PM CDT Narrative [facility] (BEAKER) - 12/27/2013 8:11 PM CDT Specimen Type->Skin Performed at: ??01 - [address] ??[id number] Hand Crown Pouncer: Ant Warnre PhD, Phone: ??[phone] Lexy FRANCO LAB - MICROBIOLOGY O RDERABLES Performing Organization Address [facility]/ZIP Co de Phone Number [facility] ([facility]) * POTASSIUM BLOOD (10/29/2013 9:02 AM CDT) Potassium 4.1 3.5 - 5.2 mmol/L [facility] ([facility]) Blood specimen (specimen) BLOOD SPECIMEN / Unknown 10/29/2013 9:02 AM CDT 10/29/2013 3:13 PM CDT Narrative [facility] - 10/30/2013 6:16 AM CDT Performed at: ??01 - [facility] ??[id number] Hand Crown Pouncer: Ant Warner PhD, Phone: ??[phone] Lexy FRANCO LAB - CHEMISTRY ORDE RABLES Performing Organization Address [facility] Co de Phone Number [facility] ([facility]) * BASIC METABOLIC PANEL (CALCIUM TOTAL) (11/02/2012 3:40 PM CDT) Only the most recent of3 resultswithin the time period is included. Glucose 83 65 - 99 mg/dL [facility] BUN 8 6 - 24 mg/dL [facility] (BEAKER) Creatinine 0.76 0.57 - 1.00 mg/dL [facility] eGFR non- 98 >59 mL/min/1.7 3 [facility] (BEAKER) eGFR 113 >59 mL/min/1.7 3 [facility] BUN/Creatinine Ratio 11 9 - 23 [facility] Sodium 140 134 - 144 mmol/L [facility] (BEAKER) Potassium 3.7 3.5 - 5.2 mmol/L [facility] (BEAKER) Chloride 102 97 - 108 mmol/L [facility] (BEAKER) CO2 23 19 - 28 mmol/L [facility] (BEAKER) Calcium 9.0 8.7 - 10.2 mg/dL [facility] (BEAKER) Venous blood specimen (specimen) 11/02/2012 3:40 PM CDT 11/02/2012 9:58 PM CDT Narrative [facility] (BEAKER) - 11/03/2012 6:23 AM CDT Performed at: ?? - [facility] ??[id number] Hand Crown Pouncer: Ant Warner PhD, Phone: ??[phone] Lexy FRANCO LAB - CHEMISTRY TYRESE PENA Performing Organization Address City/[facility]/ZIP Co de Phone Number [facility] (BEAKER) * LAB HISTORICAL RESULTS-ONBASE (03/20/2011) 03/20/2011 Historical Provider LAB - CHEMISTRY Lisa CORTEZ [facility] Care Teams Casting And Locker Room Servicer Relationship Specialty Start Date End Date Angelica Bhandari MD [address] [place] [address] PCP - General Family Medicine 04/01/23
--- OUTSIDE RECORDS SUMMARY | 2024-04-08 21:00 | XMS_ITS | Referral Summary ---
Author Organization [facility] Address [address] [place] [address] Phone Care Team Providers Care Respiratory Medicine Physician Name Role Phone Jany Smith MD Primary Care Provider [phone] [phone] Allergies Active Allergy Reactions Criticality Noted Date [...] year. Assessment & Plan (02/11/2018 8:03 AM NUCLEAR POWERPLANT MECHANIC HELPER): Pelvic exam and breast exam done. Calcium [...] 06/30/2023 Assessment & Plan (02/11/2018 8:03 AM NUCLEAR POWERPLANT MECHANIC HELPER): Discussed options for management of heavy periods [...] Free, Intramu scular 12/03/2015 Influenza, Unspecified 11/16/2019 Social History Tobacco Use Types Packs/Day Years Used Date Smoking Tobacco: Never Smokeless Tobacco: Never Tobacco Cessation:Counseling Given: Not Answered Alcohol Use Standard Drinks/Week Comments Yes 0 (1 standard drink = 0.6 oz pur e alcohol) socially AUDIT-C Answer Date Recorded Q1: How often do you have a drink containing alc ohol? 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 Not on file Not on file Last Filed Vital Signs Vital Sign Reading [...] 06/30/2023 10:34 AM CDT Plan of Treatment Not on file Procedures Procedure Name Priority Date/Time Associated Diagnosis Comments SCREENING MAMMOGRAM 2D BILATERAL Schedule Routine, Read Routine (OP Routine) 05/01/2021 COLONOSCOPY 08/16/2020 1:42 PM CDT PAP AND HIGH RISK HPV, REFLEX TO GENOTYPING Routine 05/22/2020 2:31 PM NUCLEAR POWERPLANT MECHANIC HELPER Cervical cancer screening from Last 3 Months or Most Recently Relevant to Health Maintenance Results * Screening Mammogram 2D Bilateral (05/01/2021) Anatomical Region Laterality Modality Breast Bilateral Mammography Jany Smith MD IMG MAMMO PROCEDURES Miriam l Result * COLONOSCOPY (08/16/2020 1:42 PM CDT) Anatomical Region Laterality Modality Other Narrative Procedure Note Alvin Lucas MD - 08/16/2020 1:42 PM CDT ENDOSCOPY LAB Patient Name: Odilon Babin Procedure Date: 08/16/2020 1:42 PM Admit Type: Outpatient Room: [facility] 2 Date of : 1970 Instrument Name: [...] the bowel preparation was evaluatedusing the BBPS ([place] Bowel Preparation Scale) withscores of: Right Colon [...] 08/16/2020 1:42 PM Scope In: Scope Out: Alvin Lucas MD ENDOSCOPY PROCEDURES Final Result * Pap and High Risk HPV, reflex to Genotyping (05/22/2020 2:31 PM NUCLEAR POWERPLANT MECHANIC HELPER) Clinical indication Comment [facility] - 01 Comment:NEGATIVE [...] (16,18,31,33,35,39,45,51,52,56,58,59,66,68) without differentiation. Swab 05/22/2020 2:31 PM NUCLEAR POWERPLANT MECHANIC HELPER 05/22/2020 Narrative [facility] - 05/24/2020 1:08 PM NUCLEAR POWERPLANT MECHANIC HELPER Performed at: ??01 - [facility] [place] [address] [place], [place] ??[id number] Special Procedures Tech: Laura Kee MD, Phone: ??[phone] Performed at: ??02 - [facility] [place] [address] [place], [place] ??[id number] Special Procedures Tech: Laura Kee MD, Phone: ??[phone] Specimen Comment: [id number] Specimen Comment: No. of containers..01 ThinPrep Vial us Jany Smith MD LAB CYTOLOGY ORDERABLES F inal Result [facility] - 01 LAB JUAN 02 from Last 3 Months or Most Recently Relevant to Health Maintenance Insurance [facility] CHOICE PL[employer] CHOICE PRF PPO [place] [facility] [place]PO [place] Advance Directives For more information, please contact: [phone] * Full Code (Latest Code Status on File) Date Activated Date Inactivated Comments 08/16/2020 1:30 PM 08/16/2020 6:53 PM * Full Code Date Activated Date Inactivated Comments 07/01/2017 11:16 AM 07/01/2017 3:12 PM Care Teams Respiratory Medicine Physician Relationship Specialty Start Date End Date Jany Smith MD [address] [address] PCP - General 08/16/20
--- OUTSIDE RECORDS SUMMARY | 2024-04-08 21:00 | XMS_ITS | Clinical Summary ---
Author Organization [facility] Address [address] [place] [address] Phone Care Team Providers Care Computer Systems Software Engineer Name Role Phone Anruag Bhandari MD Primary Care Provider [phone]- [phone] Allergies No known active allergies Medications ERGOCALCIFEROL, VITAMIN D2, (VITAMIN D ORAL) Take by mouth. Active Active Problems Patient Care Coordination No te Formatting of this note migh t be different from the original. Primary Care: Anurag Bhandari MD Referring Provider: Jany Smith MD [address] [place] [address] Other: Problem Noted Date Diagnosed Date Fibroadenoma of breast 07/15/2011 Unspecified hypertrophic and atrophic condition of skin 12/19/2008 Lump or mass in breast 12/12/2008 Resolved Problems Problem Noted Date Diagnosed Date Resolved Date Breast lump 05/15/2009 07/06/2013 Family History Medical History Relation Name Comments Breast Cancer Maternal Cousin Cancer Maternal Grandfather unknown type Stroke Maternal Grandfather Pancreatic Cancer Maternal Uncle Colon Cancer Paternal Aunt Relation Name Status Comments Maternal Cousin Maternal Grandfather Maternal Uncle Paternal Aunt Social History Tobacco Use Types Packs/Day Years Used Date Smoking Tobacco: Never Smokeless Tobacco: Never Alcohol Use Standard Drinks/Week Comments Yes 0 (1 standard drink = 0.6 oz pur e alcohol) rarely Comments No Sex and Gender Information Value Date Recorded Sex Assigned at Not on file Legal Sex Female 5:47 AM MANAGER BABY Gender Identity Not on file Sexual Orientation Not on file Occupation Industry Job Start Date Job End Date Not on file Not on file Not on file Not on file Not on file Not on file Not on file Not on file Last Filed Vital Signs Vital Sign Reading Time Taken Comments Blood Pressure 108/62 11/20/2018 10:21 AM CDT Pulse 69 08/23/2014 3:20 PM CDT Temperature 36.7 ??C (98.1 ??F) 04/09/2012 12:[address] Respiratory Rate 16 04/09/2012 12:57 PM MANAGER BABY Oxygen Saturation 100% 04/09/2012 12:57 PM MANAGER BABY Inhaled Oxygen Concentration - - Weight 67.2 kg (148 lb 3.2 oz) 11/20/2018 10:21 AM CDT Height 165.1 cm (5' 5 ) 11/20/2018 10:21 AM CDT Body Mass Index 24.66 11/20/2018 10:21 AM CDT Plan of Treatment Health Maintenance Due Date Last Done Comments DTAP/TDAP/TD VACCINES (1 - Tdap) 10/25/1990 HEPATITIS B VACCINES (1 of 3 - 19+ 3-dose series) 10/25/1990 CERVICAL CANCER SCREENING 10/25/2001 COLORECTAL SCREENING 10/25/2016 Colorectal Cancer Screening 10/25/2016 FIT-DNA Q 3 years 10/25/2016 FIT/FOBT Q 1 year 10/25/2016 Flex Sig/CT Colonography Q 5 years 10/25/2016 ZOSTER VACCINE (1 of 2) 10/25/2021 BREAST CANCER SCREENING 05/01/2022 05/01/19 22, 11/20/2018, 12/29/2017, Additional history exists INFLUENZA VACCINE (#1) 2023 0, 01/11/2019, 01/11/2019, Additional history exists PNEUMOCOCCAL VACCINE 0-64 YEARS Aged Out No longer eligible based on patient's age to complete this topic Procedures Procedure Name Priority Date/Time Associated Diagnosis Comments MAMMO 3D RASHI SCREEN BILAT W OR WO CAD Routine 05/01/2021 10:09 AM MANAGER BABY Visit for screening mammogram from Last 3 Months or Most Recently Relevant to Health Maintenance Results * MAMMO SCRN BILAT 3D RASHI W OR WO CAD (05/01/2021 10:09 AM MANAGER BABY) Anatomical Region Laterality Modality Breast Bilateral Mammography 05/01/2021 10:0 9 AM MANAGER BABY Impressions 05/01/2021 3:54 PM MANAGER BABY IMPRESSION: ?? Negative bilateral screening mammogram. Recommend routine followup. ?? OVERALL FINAL ASSESSMENT: ??BI-RADS CATEGORY 1: Negative DICTATION LOCATION: [facility] Narrative 05/01/2021 3:54 PM MANAGER BABY BILATERAL SCREENING DIGITAL MAMMOGRAM WITH 3D TOMOSYNTHESIS AND CAD DATE: 05/01/2021 10:09 AM HISTORY: Annual screening study. COMPARISON: 11/20/2018, 08/23/2014. TECHNIQUE: A bilateral screening mammogram was performed. Low-dose full-field digital breast tomosynthesis examination was performed with 2D and 3D acquisitions. Examination is read in conjunction with computer aided detection. ?? BREAST COMPOSITION: Heterogeneously dense, which limits the sensitivity of mammography. FINDINGS: No new masses, suspicious calcifications, or areas of asymmetry or distortion are identified. The images were reviewed using the CAD system. ?? Procedure Note Jonelle Can MD - 05/01/2021 BILATERAL SCREENING DIGITAL MAMMOGRAM WITH 3D TOMOSYNTHESIS AND CAD DATE: 05/01/2021 10:09 AM HISTORY: Annual screening study. COMPARISON: 11/20/2018, 08/23/2014. TECHNIQUE: A bilateral screening mammogram was performed. Low-dose full-field digital breast tomosynthesis examination was performed with 2D and 3D acquisitions. Examination is read in conjunction with computer aided detection. BREAST COMPOSITION: Heterogeneously dense, which limits the sensitivity of mammography. FINDINGS: No new masses, suspicious calcifications, or areas of asymmetry or distortion are identified. The images were reviewed using the CAD system. IMPRESSION: Negative bilateral screening mammogram. Recommend routine followup. OVERALL FINAL ASSESSMENT: BI-RADS CATEGORY 1: Negative DICTATION LOCATION: [facility] us Jany Smith MD MAMMO ORDERABLES Final Resul t from Last 3 Months or Most Recently Relevant to Health Maintenance Insurance [facility] [id number] Advance Directives For more information, please contact: [phone] * Full Code (Latest Code Status on File) Date Activated Date Inactivated Comments 04/09/2012 9:19 AM 04/09/2012 3:00 PM Care Teams Computer Systems Software Engineer Relationship Specialty Start Date End Date Anurag Bhandari MD PCP - General Family Practice 08/23/14
--- OUTSIDE RECORDS SUMMARY | 2024-04-08 21:00 | XMS_ITS | Clinical Summary ---
Author Organization [facility] Address [address] [place] [address]. [place], [place] [address] [place] [address] Care Team Providers Care Cnc Mill Programmer Name Role Phone Angelica Bhandari MD Primary Care Provider +1 -[phone] Allergies No known active allergies Social History Tobacco Use Types Packs/Day Years Used Date Smoking Tobacco: Never Assessed Comments No Sex and Gender Information Value Date Recorded Sex Assigned at Not on file Legal Sex Female 7:05 PM CDT Gender Identity Not on file Sexual Orientation Not on file Last Filed Vital Signs Vital Sign Reading Time Taken Comments Blood Pressure 92/61 03/02/2018 10:30 AM EMAIL MARKETING EXECUTIVE Pulse 85 03/02/2018 8:21 AM EMAIL MARKETING EXECUTIVE Temperature 36.8 ??C (98.2 ??F) 03/02/2018 8:21 AM CS T Respiratory Rate 17 03/02/2018 8:21 AM EMAIL MARKETING EXECUTIVE Oxygen Saturation 96% 03/02/2018 10:30 AM EMAIL MARKETING EXECUTIVE Inhaled Oxygen Concentration - - Weight 68 kg (150 lb) 03/02/2018 8:21 AM EMAIL MARKETING EXECUTIVE Height 165.1 cm (5' 5 ) 03/02/2018 8:21 AM EMAIL MARKETING EXECUTIVE Body Mass Index 24.96 03/02/2018 8:21 AM EMAIL MARKETING EXECUTIVE Plan of Treatment Health Maintenance Due Date Last Done Comments Cervical Cancer Screening Pa p Smear (Age 30 to 64) Every 3 Years 1970 Colorectal Cancer Screening Colonoscopy (10 Years) 1970 Annual Physical 10/25/1974 Hepatitis C 10/25/1989 DTaP, Tdap and Td Vaccines ( 1 - Tdap) 10/25/1990 Hepatitis B Vaccines (1 of 3 - 19+ 3-dose series) 10/25/1990 Cervical Cancer Screening Pa p with HPV Testing (Age 30 to 64) Every 5 Years 10/25/2001 Cervical Cancer Screening wi th HPV 10/25/2001 Mammogram Screening 2011 Zoster Vaccines (1 of 2) 10/25/2021 COVID-19 Vaccine (2023-2 5 season) 2023 Influenza Adult (#1) 2023 01/08/2018, 12/03/2015, 11/12/2013 Meningococcal Vaccine Aged Out No abilio anson eligible based on patient's age to complete this topic Pneumococcal Vaccine: Pediatrics (0 to 5 Years) and At-Risk Patients (6 to 64 Years) Aged Out No longer eligible b ased on patient's age to complete this topic RSV Immunizations Under 20 Months Aged Out No longer eligible b ased on patient's age to complete this topic Insurance [facility] Care Teams Cnc Mill Programmer Relationship Specialty Start Date End Date Angelica Bhandari MD PCP - General FAMILY PRACTICE 03/02/18
== END 2024-04-07 10:13 | disposition home or self-care (01) ==
PROVIDERS: PCP Family Medicine; Visit Provider Internal Medicine Gastroenterology
PROC: 0DJD8ZZ Inspection of Lower Intestinal Tract, Via Natural or Artificial Opening Endoscopic (ICD-10-PCS; CPT 45378; principal; 2024-04-07 10:00)
DX: Z12.11 Encounter for screening for malignant neoplasm of colon (principal); D12.3 Benign neoplasm of transverse colon; K64.8 Other hemorrhoids; K57.30 Diverticulosis of large intestine without perforation or abscess without bleeding; E78.2 Mixed hyperlipidemia; E03.9 Hypothyroidism, unspecified; F41.9 Anxiety disorder, unspecified; G56.03 Carpal tunnel syndrome, bilateral upper limbs; F12.90 Cannabis use, unspecified, uncomplicated; Z98.890 Other specified postprocedural states; Z90.49 Acquired absence of other specified parts of digestive tract
CPT/HCPCS: 45385; 88305; J2704; J7120

== ENCOUNTER 2024-04-15 10:49 | Outpatient (CLI) | payer BC, SELFPAY ==
--- NOTE | ~2024-04-15 | XR_ITS ---
EXAMINATION: XR cervical spine 4-5V DATE: 04/15/2024 11:11 INDICATION: Disease of spinal cord, unspecified. Pain radiating down the right arm. Left leg numbness . TECHNIQUE: 6 views of cervical spine including flexion and extension views were obtained. COMPARISON: None. FINDINGS: Alignment is normal. There is no abnormal motion with flexion or extension. Vertebral body heights are normal. There is mildly decreased disc height at C4-C5. At C7-T1, there is severe facet j oint osteoarthritis. No central canal stenosis or prevertebral soft tissue swelling. IMPRESSION: 1. Mild cervical spondylosis. Reviewed, dictated and finalized at location A. MBLER DC FIELD RING
== END 2024-04-15 10:50 | disposition home or self-care (01) ==
LOC: GOSHIMG 10:50
PROVIDERS: PCP Family Medicine; Visit Provider Family Medicine
DX: G95.9 Disease of spinal cord, unspecified (principal); M47.22 Other spondylosis with radiculopathy, cervical region
CPT/HCPCS: 72050

== ENCOUNTER 2024-04-21 07:30 | Outpatient (CLI) | payer BC, SELFPAY ==
--- NOTE | ~2024-04-21 | MR_ITS ---
MRI of the cervical spine Clinical History: Disease of spinal cord, unspecified Technique: Axial T2-weighted and gradient images, and sagittal T1-weighted, T2-weighted, and STIR janie ges were acquired. Findings: There is no fracture or subluxation of the cervical spine. There is straightening of the no rmal cervical lordosis. No suspicious bone marrow signal abnormality seen. No significant disc bulge or herniation seen at any cervical. There are mild facet joint degenerative changes throughout the cervical spine. No leona spinal canal stenosis or cord compression. Neural fo ramina are preserved. No abnormal signal seen in the spinal cord. No epidural mass or collection. Paravertebral soft tissues are unremarkable. Impression: Minimal degenerative change, as above. Reviewed, dictated and finalized at location M. WINTERIZER Impression: Minimal degenerative change, as above.
== END 2024-04-21 07:31 | disposition home or self-care (01) ==
PROVIDERS: PCP Family Medicine; Visit Provider Family Medicine
DX: M47.812 Spondylosis without myelopathy or radiculopathy, cervical region (principal); G95.9 Disease of spinal cord, unspecified
CPT/HCPCS: 72141

== ENCOUNTER 2024-05-07 10:43 | Outpatient (CLI) | payer BC, SELFPAY ==
--- NOTE | ~2024-05-07 | MR_ITS ---
EXAMINATION: MR lumbar spine wo con DATE: 05/07/2024 11:29 INDICATION: Muscle weakness. Left leg paresthesias. TECHNIQUE: Magnetic resonance imaging (MRI) of the lumbar spine was performed without intravenous con trast. Sequences included sagittal T2-weighted FSE, sagittal T2-weighted FS FSE, sagittal T1-weighted FSE, and axial T2-weighted FSE. COMPARISON: None FINDINGS: Alignment is normal. Vertebral body heights are normal. Intervertebral disc heights are nor mal. The distal spinal cord signal intensity is normal. The conus medullaris is at L1. The following disc levels are specifically discussed: L1-L2: There is a central extrusion. There is mild bilateral facet joint osteoarthritis. There is no neural foraminal stenosis. There is mild central canal stenosis. L2-L3: The disc does not extend beyond the endplate margin. There is mild bilateral facet joint osteo arthritis. There is no neural foraminal stenosis. There is no central canal stenosis. L3-L4: The disc is mildly bulging. There is mild bilateral facet joint osteoarthritis. There is mild bilateral neural foraminal stenosis. There is no central canal stenosis. L4-L5: The disc is bulging. There is mild bilateral facet joint osteoarthritis. There is mild bilater al neural foraminal stenosis. There is mild central canal stenosis. L5-S1: The disc does not extend beyond the endplate margin. There is moderate bilateral facet joint o steoarthritis. There is no neural foraminal stenosis. There is no central canal stenosis. IMPRESSION: 1. Mild lumbar spondylosis. Reviewed, dictated and finalized at location A. RNATIONAL ACCOUNTANT IMPRESSION: 1. Mild lumbar spondylosis.
== END 2024-05-07 10:44 | disposition home or self-care (01) ==
PROVIDERS: PCP Family Medicine; Visit Provider Family Medicine
DX: M47.816 Spondylosis without myelopathy or radiculopathy, lumbar region (principal); M62.81 Muscle weakness (generalized)
CPT/HCPCS: 72148

== ENCOUNTER 2024-06-11 08:50 | Outpatient (CLI) | payer BC, SELFPAY ==
--- NOTE | ~2024-06-11 | MR_ITS ---
MR brain/brain stem wo/w con Ordering provider: Hayde Bello MD History: 53 years Female with . G35 - Multiple sclerosis . Comparison: None Technique: MRI brain was performed with and without contrast. FINDINGS: BONES: Normal. CRANIOCERVICAL JUNCTION: normal. PITUITARY: Normal. MAJOR INTRACRANIAL VESSELS: Normal flow void. OPTIC NERVES AND CRANIAL NERVES VII AND VIII COMPLEXES: Grossly normal. BRAIN PARENCHYMA AND CSF SPACES: No visible white matter disease. The brainstem and cerebellum are n ormal. No acute or chronic intracranial hemorrhage. No extra axial fluid collections. Diffusion weigh trista and ADC mapping images reveal no recent ischemia. No midline shift or mass effect. No abnormal co ntrast enhancement. PARANASAL SINUSES: Normal. MASTOIDS: Normal SUPERFICIAL/SURROUNDING SOFT TISSUES: Normal. IMPRESSION: 1. No definite abnormality. 2. No abnormal enhancement. Reviewed, dictated and finalized at location A.
--- OUTSIDE RECORDS SUMMARY | 2024-06-11 09:11 | XMS_ITS | Clinical Summary ---
Author Organization [facility] Address [address] [place] [address] Phone Care Team Providers Care Medical Record Transcriber Name Role Phone Jany Smith MD Primary Care Provider +1 [phone] Allergies Active Allergy Reactions Criticality Noted Date [...] year. Assessment & Plan (02/11/2018 8:03 AM FERN CUTTER): Pelvic exam and breast exam done. Calcium [...] 06/30/2023 Assessment & Plan (02/11/2018 8:03 AM FERN CUTTER): Discussed options for management of heavy periods including NSAIDs and Lysteda. Odilon will try NSAIDs. 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 Not on file Not [...] 78 08/16/2020 2:34 PM CDT Temperature 37.1 C (98.8 F) 08/16/2020 1:29 PM CDT Respiratory Rate 20 08/16/2020 2:34 PM CDT [...] REFLEX TO GENOTYPING Routine 05/22/2020 2:31 PM FERN CUTTER Cervical cancer screening from Last 3 Months [...] 2 Date of : 1970 Instrument Name: [id number] Gender: Female Note Status: Finalized Procedure: Colonoscopy [...] the bowel preparation was evaluatedusing the BBPS ([place] Bowel Preparation Scale) withscores of: Right Colon [...] HPV, reflex to Genotyping (05/22/2020 2:31 PM FERN CUTTER) Clinical indication Comment [facility] - 01 Comment:NEGATIVE [...] and malignant conditions of the uterine cervix. It is not a diagnostic procedure and should not be used as the sole means of detecting cervical cancer. Both false-positive and false-negative reports do occur. Test methodology Comment [facility] - 01 Comment: This liquid based ThinPrep(R) pap test was screened with the use of an image guided system. HPV Aptima Negative Negative [facility] 02 Comment: This nucleic acid amplification test detects fourteen high-risk HPV types (16,18,31,33,35,39,45,51,52,56,58,59,66,68) without differentiation. Swab 05/22/2020 2:31 PM FERN CUTTER 05/22/2020 Narrative [facility] - 05/24/2020 1:08 PM FERN CUTTER Performed at: 01 - [facility] [id number] Timber Poisoner: Laura Kee MD, Phone: [phone] Performed at: - [facility] [id number] Timber Poisoner: Laura Kee MD, Phone: [phone] Specimen Comment: [id number] Specimen Comment: No. of containers..01 ThinPrep Vial Jany Smith MD LAB CYTOLOGY ORDERABLES F inal Result [facility] - 01 [facility] 02 from Last 3 Months or Most Recently Relevant to Health Maintenance Insurance [facility] CHOICE PLUS CHOICE PRF PPO [place] [facility] PPO [place] Advance Directives For more information, please contact: [phone] * Full Code (Latest Code Status on File) Date Activated Date Inactivated Comments 08/16/2020 1:30 PM 08/16/2020 6:53 PM * Full Code Date Activated Date Inactivated Comments 07/01/2017 11:16 AM 07/01/2017 3:12 PM Care Teams Medical Record Transcriber Relationship Specialty Start Date End Date Jany Smith MD [address] [facility] [address] [address] PCP - General 08/16/20
--- OUTSIDE RECORDS SUMMARY | 2024-06-11 09:11 | XMS_ITS | Clinical Summary ---
Author Organization [facility] Address [address] [place] [address] Care Team Providers Care Blank Driller Name Role Phone Angelica Bhandari MD Primary Care Provider +1 [phone] Allergies No known active allergies Social History [...] Comments Blood Pressure 92/61 03/02/2018 10:30 AM TAPE FOLDING MACHINE OPERATOR Pulse 85 03/02/2018 8:21 AM TAPE FOLDING MACHINE OPERATOR Temperature 36.8 C (98.2 F) 03/02/2018 8:21 AM TAPE FOLDING MACHINE OPERATOR Respiratory Rate 17 03/02/2018 8:21 AM TAPE FOLDING MACHINE OPERATOR Oxygen Saturation 96% 03/02/2018 10:30 AM TAPE FOLDING MACHINE OPERATOR Inhaled Oxygen Concentration - - Weight 68 kg (150 lb) 03/02/2018 8:21 AM TAPE FOLDING MACHINE OPERATOR Height 165.1 cm (5' 5 ) 03/02/2018 8:21 AM TAPE FOLDING MACHINE OPERATOR Body Mass Index 24.96 03/02/2018 8:21 AM TAPE FOLDING MACHINE OPERATOR Plan of Treatment Health Maintenance Due Date [...] Adult (#1) 2023 01/08/2018, 12/03/2015, 11/12/2013 Meningococcal B Vaccine Aged Out No l onger eligible based on patient's age to complete this topic Meningococcal Vaccine Aged Out No abilio anson [...] patient's age to complete this topic Insurance Care Teams Blank Driller Relationship Specialty Start Date End Date Angelica Bhandari MD PCP - General FAMILY PRACTICE 03/02/18
--- OUTSIDE RECORDS SUMMARY | 2024-06-11 09:11 | XMS_ITS | Clinical Summary ---
Author Organization [facility] Address [address] [place] [address] Phone Care Team Providers Care Integrated Circuit Ic Layout Designer Name Role Phone Anurag Bhandari MD Primary Care Provider +1- [phone] Allergies No known active allergies Medications ERGOCALCIFEROL, VITAMIN D2, (VITAMIN D ORAL) Take by mouth. Active Active Problems Patient Care Coordination No te Formatting of this note migh t be different from the original. Primary Care: Anurag Bhandari MD Referring Provider: Jany Smith MD [address] [place] [address] Other: Problem Noted Date Diagnosed Date Fibroadenoma [...] on file Legal Sex Female 5:47 AM PROPERTY CUSTODIAN Gender Identity Not on file Sexual Orientation [...] 70 08/23/2014 3:20 PM CDT Temperature 36.7 C (98.1 F) 04/09/2012 12:57 PM PROPERTY CUSTODIAN Respiratory Rate 16 04/09/2012 12:57 PM PROPERTY CUSTODIAN Oxygen Saturation 100% 04/09/2012 12:57 PM PROPERTY CUSTODIAN Inhaled Oxygen Concentration - - Weight 67.2 kg (148 lb 3.2 oz) 11/20/2018 10:21 AM CDT Height 165.1 cm (5' 5 ) 11/20/2018 10:21 AM CDT Body Mass Index 24.66 11/20/2018 10:21 AM CDT Plan of Treatment Health Maintenance Due Date Last Done Comments DTAP/TDAP/TD VACCINES (1 - Tdap) 10/25/1990 HEPATITIS B VACCINES (1 of 3 - 19+ 3-dose series) 10/25/1990 PAP SMEAR 10/25/1992 CERVICAL CANCER SCREENING 10/25/2001 HPV/Cotest (30-65) 10/25/2001 PAP SMEAR 10/25/2001 COLORECTAL SCREENING 10/25/2016 Colorectal Cancer Screening 10/25/2016 FIT-DNA Q 3 years 10/25/2016 FIT/FOBT Q 1 year 10/25/2016 Flex Sig/CT Colonography Q 5 years 10/25/2016 ZOSTER VACCINE (1 of 2) 10/25/2021 BREAST CANCER SCREENING 05/01/2022 05/01/19 22, 11/20/2018, 12/29/2017, Additional history exists INFLUENZA VACCINE (#1) 2023 0, 01/11/2019, 01/11/2019, Additional history exists PNEUMOCOCCAL VACCINE 0-49 YEARS Aged Out No longer eligible based on patient's age to complete this topic Procedures Procedure Name Priority Date/Time Associated Diagnosis Comments MAMMO 3D RASHI SCREEN BILAT W OR WO CAD Routine 05/01/2021 10:09 AM PROPERTY CUSTODIAN Visit for screening mammogram from Last 3 Months or Most Recently Relevant to Health Maintenance Results * MAMMO SCRN BILAT 3D RASHI W OR WO CAD (05/01/2021 10:09 AM PROPERTY CUSTODIAN) Anatomical Region Laterality Modality Breast Bilateral Mammography 05/01/2021 10:0 9 AM PROPERTY CUSTODIAN Impressions 05/01/2021 3:54 PM PROPERTY CUSTODIAN IMPRESSION: Negative bilateral screening mammogram. Recommend routine followup. OVERALL FINAL ASSESSMENT: BI-RADS CATEGORY 1: Negative DICTATION LOCATION: [facility] Narrative 05/01/2021 3:54 PM PROPERTY CUSTODIAN BILATERAL SCREENING DIGITAL MAMMOGRAM WITH 3D TOMOSYNTHESIS [...] images were reviewed using the CAD system. Procedure Note Jonelle Can MD - 05/01/2021 [...] ASSESSMENT: BI-RADS CATEGORY 1: Negative DICTATION LOCATION: [facility] us Jany Smith MD MAMMO ORDERABLES Final Resul t from Last 3 Months or Most Recently Relevant to Health Maintenance Insurance [facility] [id number] Advance Directives For more information, please contact: [phone] * Full Code (Latest Code Status on File) Date Activated Date Inactivated Comments 04/09/2012 9:19 AM 04/09/2012 3:00 PM Care Teams Integrated Circuit Ic Layout Designer Relationship Specialty Start Date End Date Anurag Bhandari MD PCP - General Family Practice 08/23/14
--- OUTSIDE RECORDS SUMMARY | 2024-06-11 09:11 | XMS_ITS | Clinical Summary ---
Author Organization [facility] Address [address] [place] [address] Care Team Providers Care Body Component Engineer Name Role Phone Angelica Bhandari MD Primary Care Provider +1 -[phone] Source Comments [facility],non-owned Affiliates and Associated Physician Practices is amultiple site organization consisting of ambulatory clinics and hospital sitesin [place], [place], [place] and [place]. This disclosure is being madepursuant to the Care Everywhere program and may not contain all information available regarding this patient. Last updated 17.[facility] Allergies Active Allergy Reactions Criticality Noted Date [...] encouraged Assessment & Plan (04/14/2020 10:32 AM DRIER ATTENDANT): None worrisome Self exams Photoprotection Family history of colonic polyps 04/23/2017 Family history of colon cancer 12/12/2016 Overview (04/14/2020): Last Assessment & Plan: Schedule colonoscopy. GI list given to pt. 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) drug therapy 5 Acne vulgaris 07/28/2013 Assessment & Plan (07/13/2020 12:38 PM CDT): Acne doing well Continue benzaclin prn and tazorac nightly Assessment & Plan (04/14/2020 10:32 AM DRIER ATTENDANT): Restart tazorac cream Use benzaclin prn Encounters Date Type Department Care Team Description 05/24/2024 Refill [facility] - Dermatology [address] [place] [address] [place] [address] Chuck Raymundo, MONICA Refill Request from Last 3 Months Immunizations Name Administration Dates Next Due INFLUENZA [...] complete this topic MENINGOCOCCAL (Group B) VACCINE SHARED DECISION-MAKING Aged Out No longer eligible based on patient's age to complete this topic MENINGOCOCCAL GROUPS A/C/Y/W VACCINE Aged Out No longer eligible based on patient's age to complete this topic Care Teams Body Component Engineer Relationship Specialty Start Date End Date Angelica Bhandari MD [address] [place] [address] PCP - General Family Medicine 04/01/23
--- OUTSIDE RECORDS SUMMARY | 2024-06-11 09:11 | XMS_ITS | Referral Summary ---
Author Organization [facility] Address [address] [place] [address] Phone Care Team Providers Care Welder Gas Automatic Name Role Phone Jany Smith MD Primary Care Provider +1 -[phone] Allergies Active Allergy Reactions Criticality Noted Date [...] year. Assessment & Plan (02/11/2018 8:03 AM CMV DRIVER): Pelvic exam and breast exam done. 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 Swab 05/22/2020 2:31 PM CMV DRIVER 05/22/2020 Narrative [facility] - 05/24/2020 1:08 PM CMV DRIVER Performed at: 01 - [facility] [address] [place], [place] [id number] Plaster Machine Tender: Laura Kee MD, Phone: [phone] Performed at: 02 - [facility] [address] [place], [place] [id number] Plaster Machine Tender: Laura Kee MD, Phone: [phone] Specimen Comment: [id number] Specimen Comment: No. of containers..01 ThinPrep Vial us Jany Smith MD LAB CYTOLOGY ORDERABLES F inal Result [facility] - 01 [facility] 02 from Last 3 Months or Most Recently Relevant to Health Maintenance Insurance [facility] CHOICE PLUS CHOICE PRF [place] [facility] [place] Advance Directives For more information, please contact: [phone] * Full Code (Latest Code Status on File) Date Activated Date Inactivated Comments 08/16/2020 1:30 PM 08/16/2020 6:53 PM * Full Code Date Activated Date Inactivated Comments 07/01/2017 11:16 AM 07/01/2017 3:12 PM Care Teams Welder Gas Automatic Relationship Specialty Start Date End Date Jany Smith MD [address] [address] PCP - General 08/16/20
== END 2024-06-11 08:51 | disposition home or self-care (01) ==
PROVIDERS: PCP Family Medicine; Visit Provider Psychiatry & Neurology Neurology
DX: G35 Multiple sclerosis (principal); R20.2 Paresthesia of skin; G62.9 Polyneuropathy, unspecified; H81.10 Benign paroxysmal vertigo, unspecified ear; G47.33 Obstructive sleep apnea (adult) (pediatric)
CPT/HCPCS: 70553; A9579

== ENCOUNTER 2024-07-20 10:13 | Outpatient (CLI) | payer BC, SELFPAY ==
--- OUTSIDE RECORDS SUMMARY | 2024-07-20 11:08 | XMS_ITS | Clinical Summary ---
Author Organization [facility] Address [address] [place] [address] Phone Care Team Providers Care Pneumatic Tube Operator Name Role Phone Jany Smith MD Primary Care Provider +1 -[phone] Allergies Active Allergy Reactions Criticality Noted Date [...] year. Assessment & Plan (02/11/2018 8:03 AM SALT MAKER): Pelvic exam and breast exam done. 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 Not [...] exists Covid-19 Vaccine () 11/16/2023 10/18/2020, 09/12/2020 Regular Well Visit/Exam 18-64 06/29/2024 06/30/2023, 07/16/2021, 05/22/2020, Additional history exists Influenza Vaccine (Season Ended) 2024 12/17/2019, 11/16/2019, 01/11/2019, Additional history exists Colon Cancer Screening-Colonoscopy 08/16/2030 08/16/2020, 07/01/2017 Pneumococcal vaccine <65 Aged Out No longer eligible based on patient's age to complete this topic Procedures Procedure Name Priority Date/Time Associated Diagnosis Comments SCREENING MAMMOGRAM 2D BILATERAL Schedule Routine, Read Routine (OP Routine) 05/01/2021 COLONOSCOPY 08/16/2020 1:42 PM CDT PAP AND HIGH RISK HPV, REFLEX TO GENOTYPING Routine 05/22/2020 2:31 PM SALT MAKER Cervical cancer screening from Last 3 Months [...] 08/16/2020 1:42 PM Admit Type: Outpatient Room: [facility] 2 Date of : 1970 Instrument [...] the bowel preparation was evaluatedusing the BBPS ([place] Bowel Preparation Scale) withscores of: Right Colon [...] HPV, reflex to Genotyping (05/22/2020 2:31 PM SALT MAKER) Clinical indication Comment [facility] - 01 Comment:NEGATIVE [...] (16,18,31,33,35,39,45,51,52,56,58,59,66,68) without differentiation. Swab 05/22/2020 2:31 PM SALT MAKER 05/22/2020 Narrative [facility] - 05/24/2020 1:08 PM SALT MAKER Performed at: 01 - [facility] [id number] Honey Blender: Laura Kee MD, Phone: [phone] Performed at: - [facility] [id number] Honey Blender: Laura Kee MD, Phone: [phone] Specimen Comment: [id number] Specimen Comment: No. of containers..01 ThinPrep Vial Jany Smith MD LAB CYTOLOGY ORDERABLES F inal Result [facility] - 01 [facility] 02 from Last 3 Months or Most Recently Relevant to Health Maintenance Insurance [facility] CHOICE PLUS CHOICE [place] [facility] PPO [place] Advance Directives For more information, please contact: [phone] * Full Code (Latest Code Status on File) Date Activated Date Inactivated Comments 08/16/2020 1:30 PM 08/16/2020 6:53 PM * Full Code Date Activated Date Inactivated Comments 07/01/2017 11:16 AM 07/01/2017 3:12 PM Care Teams Pneumatic Tube Operator Relationship Specialty Start Date End Date Jany Smith MD [address] [address] PCP - General 08/16/20
--- OUTSIDE RECORDS SUMMARY | 2024-07-20 11:08 | XMS_ITS | Clinical Summary ---
Author Organization [facility] Address [address] [place] [address] Care Team Providers Care Fur Blowing Machine Attendant Name Role Phone Angelica Bhandari MD Primary Care Provider [phone] Allergies No known active allergies Social History [...] Comments Blood Pressure 92/61 03/02/2018 10:30 AM SOCIAL SCIENCE MANAGER Pulse 85 03/02/2018 8:21 AM SOCIAL SCIENCE MANAGER Temperature 36.8 C (98.2 F) 03/02/2018 8:21 AM SOCIAL SCIENCE MANAGER Respiratory Rate 17 03/02/2018 8:21 AM SOCIAL SCIENCE MANAGER Oxygen Saturation 96% 03/02/2018 10:30 AM SOCIAL SCIENCE MANAGER Inhaled Oxygen Concentration - - Weight 68 kg (150 lb) 03/02/2018 8:21 AM SOCIAL SCIENCE MANAGER Height 165.1 cm (5' 5 ) 03/02/2018 8:21 AM SOCIAL SCIENCE MANAGER Body Mass Index 24.96 03/02/2018 8:21 AM SOCIAL SCIENCE MANAGER Plan of Treatment Health Maintenance Due Date [...] Every 5 Years 10/25/2001 Cervical Cancer Screening with HPV 10/25/2001 Mammogram Screening 2011 Pneumococcal Vaccine: 50+ Ye ars (1 of 1 - PCV) 10/25/2021 Zoster Vaccines (1 of 2) 10/25/2021 COVID-19 Vaccine (1 - 2023-2 5 season) 2023 Meningococcal B Vaccine Aged Out No l onger eligible based on patient's age to complete this topic Meningococcal Vaccine Aged Out No abilio anson eligible based on patient's age to complete this topic RSV Immunizations Under 20 Months Aged Out No longer eligible based on patient's age to complete this topic Insurance [facility] Care Teams Fur Blowing Machine Attendant Relationship Specialty Start Date End Date Angelica Bhandari MD PCP - General FAMILY PRACTICE 03/02/18
--- OUTSIDE RECORDS SUMMARY | 2024-07-20 11:08 | XMS_ITS | Referral Summary ---
Author Organization [facility] Address [address] [place] [address] Phone Care Team Providers Care Computer Systems Design Analyst Name Role Phone Jany Smith MD Primary Care Provider [phone] [phone] Allergies Active Allergy Reactions Criticality Noted Date [...] year. Assessment & Plan (02/11/2018 8:03 AM STENOCAPTIONER): Pelvic exam and breast exam done. 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 Swab 05/22/2020 2:31 PM STENOCAPTIONER 05/22/2020 Narrative [facility] - 05/24/2020 1:08 PM STENOCAPTIONER Performed at: 01 - [facility] [address] [place], [place] [id number] Rover Tender: Laura Kee MD, Phone: [phone] Performed at: 02 - [facility] [address] [place], [place] [id number] Rover Tender: Laura Kee MD, Phone: [phone] Specimen Comment: [id number] Specimen Comment: No. of containers..01 ThinPrep Vial us Jany Smith MD LAB CYTOLOGY ORDERABLES F inal Result [facility] - 01 LAB JUAN 02 from Last 3 Months or Most Recently Relevant to Health Maintenance Insurance [facility] CHOICE PLUS CHOICE PRF [place]PO [place] REPLACED BY [facility] Advance Directives For more information, please contact: [phone] * Full Code (Latest Code Status on File) Date Activated Date Inactivated Comments 08/16/2020 1:30 PM 08/16/2020 6:53 PM * Full Code Date Activated Date Inactivated Comments 07/01/2017 11:16 AM 07/01/2017 3:12 PM Care Teams Computer Systems Design Analyst Relationship Specialty Start Date End Date Jany Smith MD [address] [address] PCP - General 08/16/20
--- OUTSIDE RECORDS SUMMARY | 2024-07-20 11:08 | XMS_ITS | Clinical Summary ---
Author Organization [facility] Address [address] [place] [address] Phone Care Team Providers Care Bandsaw Operator Name Role Phone Anurag Bhandari MD Primary Care Provider [phone] Allergies No known active allergies Medications ERGOCALCIFEROL, VITAMIN D2, (VITAMIN D ORAL) Take by mouth. Active Active Problems Patient Care Coordination No te Formatting of this note migh t be different from the original. Primary Care: Anurag Bhandari MD Referring Provider: Jany Smith MD [address] [place] [address] Other: Problem Noted Date Diagnosed Date Fibroadenoma [...] on file Legal Sex Female 5:47 AM FRAME GATE MORTISER OPERATOR Gender Identity Not on file Sexual Orientation [...] 36.7 C (98.1 F) 04/09/2012 12:57 PM FRAME GATE MORTISER OPERATOR Respiratory Rate 16 04/09/2012 12:57 PM FRAME GATE MORTISER OPERATOR Oxygen Saturation 100% 04/09/2012 12:57 PM FRAME GATE MORTISER OPERATOR Inhaled Oxygen Concentration - - Weight 67.2 kg (148 lb 3.2 oz) 11/20/2018 10:21 AM CDT Height 165.1 cm (5' 5 ) 11/20/2018 10:21 AM CDT Body Mass Index 24.66 11/20/2018 10:21 AM CDT Plan of Treatment Health Maintenance Due Date Last Done Comments DTAP/TDAP/TD VACCINES (1 - Tdap) 10/25/1990 HEPATITIS B VACCINES (1 of 3 - 19+ 3-dose series) 10/25/1990 HPV/Cotest (21-29) 10/25/1992 CERVICAL CANCER SCREENING 10/25/2001 HPV/Cotest (30-65) 10/25/2001 PAP SMEAR 10/25/2001 COLORECTAL SCREENING 10/25/2016 Colorectal Cancer Screening 10/25/2016 FIT-DNA Q 3 years 10/25/2016 FIT/FOBT Q 1 year 10/25/2016 Flex Sig/CT Colonography Q 5 years 10/25/2016 ZOSTER VACCINE (1 of 2) 10/25/2021 BREAST CANCER SCREENING 05/01/2022 05/01/19 22, 11/20/2018, 12/29/2017, Additional history exists INFLUENZA VACCINE (#1) 2023 0, 01/11/2019, 01/11/2019, Additional history exists Procedures Procedure Name Priority Date/Time Associated Diagnosis Comments MAMMO 3D RASHI SCREEN BILAT W OR WO CAD Routine 05/01/2021 10:09 AM FRAME GATE MORTISER OPERATOR Visit for screening mammogram from Last 3 Months or Most Recently Relevant to Health Maintenance Results * MAMMO SCRN BILAT 3D RASHI W OR WO CAD (05/01/2021 10:09 AM FRAME GATE MORTISER OPERATOR) Anatomical Region Laterality Modality Breast Bilateral Mammography 05/01/2021 10:0 9 AM FRAME GATE MORTISER OPERATOR Impressions 05/01/2021 3:54 PM FRAME GATE MORTISER OPERATOR IMPRESSION: Negative bilateral screening mammogram. Recommend routine followup. OVERALL FINAL ASSESSMENT: BI-RADS CATEGORY 1: Negative DICTATION LOCATION: [facility] Narrative 05/01/2021 3:54 PM FRAME GATE MORTISER OPERATOR BILATERAL SCREENING DIGITAL MAMMOGRAM WITH 3D TOMOSYNTHESIS [...] ASSESSMENT: BI-RADS CATEGORY 1: Negative DICTATION LOCATION: [facility] us Jany Smith MD MAMMO ORDERABLES Final Resul t from Last 3 Months or Most Recently Relevant to Health Maintenance Insurance [facility] [id number] Member Subscriber Plan / Payer (Ef fective 2023-Present) Name:Nitza Babin Relation to Subscriber:Self Name:Nitza Babin Payer ID:[id number] Group ID:Not on file Type:EPO Address: [place] [id number] [place] [id number] Advance Directives For more information, please contact: [phone] * Full Code (Latest Code Status on File) Date Activated Date Inactivated Comments 04/09/2012 9:19 AM 04/09/2012 3:00 PM Care Teams Bandsaw Operator Relationship Specialty Start Date End Date Anurag Bhandari MD PCP - General Family Practice 08/23/14
--- OUTSIDE RECORDS SUMMARY | 2024-07-20 11:08 | XMS_ITS | Clinical Summary ---
Author Organization [facility] Address [address] [place] [address] Care Team Providers Care Field Support Engineer Name Role Phone Angelica Bhandari MD Primary Care Provider [phone] Source Comments [facility],non-owned Affiliates and Associated Physician Practices is amultiple site organization consisting of ambulatory clinics and hospital sitesin [place], [place], [place] and [place]. This disclosure is being madepursuant to the Care Everywhere program and may not contain all information available regarding this patient. Last updated 17.[facility] Allergies Active Allergy Reactions Criticality Noted Date Comments Levofloxacin Itching Medium Reaction: ITCHING, Reaction: ITCHING Medications * Be aware that medications may not be up to date on this document. Alwaysverify current medications with the patient. buPROPion XL 24hr (WELLBUTRIN-XL) 300 MG tablet Take 300 mg by mouth. 12/20/2016 Active levothyroxine (SYNTHROID) 50 MCG tablet TK 1 T PO QD 1 06/03/2017 Activ e triamterene-hyd roCHLOROthiazid e (DYAZIDE) 37.5-25 MG capsule TK 1 C PO ONCE D IN THE MORNING 3 06/11/2017 Active cloNIDine (CATAPRES) 0.2 MG tablet TK 1 T PO QHS 01/17/2020 Activ e venlafaxine (EFFEXOR) 37.5 MG tablet TK 1 T PO D 01/26/2020 Active fluorouracil (EFUDEX) 5 % creamIndication s:Actinic skin damage Apply to affected area twice daily for two weeks. 40 g 07/11/2020 Active tazarotene (Tazorac) 0.05 % creamIndication s:Acne vulgaris Pea sized amount to entire face at night.. 30 days supply. 30 g 5 04/01/2023 Active clindamycin-mary zoyl peroxide (Duac) 1.2-5 % gelIndications: Acne vulgaris Apply to affected area once daily [...] encouraged Assessment & Plan (04/14/2020 10:32 AM SPECIAL POPULATION PARAPROFESSIONAL): None worrisome Self exams Photoprotection Family history of colonic polyps 04/23/2017 Family history of colon cancer 12/12/2016 Overview (04/14/2020): Last Assessment & Plan: Schedule colonoscopy. GI list given to pt. LUIS (stress urinary incontinence, female) 2016 Overview (04/14/2020): Last Assessment & Plan: Kegel exercises Other long-term (current) drug therapy 5 Acne vulgaris 07/28/2013 Assessment & Plan (07/13/2020 12:38 PM CDT): Acne doing well Continue benzaclin prn and tazorac nightly Assessment & Plan (04/14/2020 10:32 AM SPECIAL POPULATION PARAPROFESSIONAL): Restart tazorac cream Use benzaclin prn Encounters Date Type Department Care Team Description 05/24/2024 Refill [facility] - Dermatology [address] [place] [address], [place] [address] Chuck Raymundo, MONICA Refill Request from Last 3 Months Immunizations Immunization Administration Dates Next Due INFLUENZA VACCINE 11/16/2019 [...] drink = 0.6 oz pur e alcohol) Comments No Sex and Gender Information Value Date Recorded Sex Assigned at Not on file Legal Sex Female 7:30 AM SPECIAL POPULATION PARAPROFESSIONAL Gender Identity Not on file Sexual Orientation [...] 04/17, 12/29/2017, Additional history exists COVID-19 VACCINE ( - season) 2023 DEPRESSION SCREENING 03/17/2024 INFLUENZA VACCINE (Season Ended) 2024 12/17/2019, 11/16/2019, 01/11/2019, Additional history exists HIB VACCINE Aged Out No longer eligi [...] patient's age to complete this topic Insurance [facility] Care Teams Field Support Engineer Relationship Specialty Start Date End Date Angelica Bhandari MD [address] [place] [id number] PCP - General Family Medicine 04/01/23
[2024-08-05 13:23] VITALS: BMI 25.7
--- NOTE | 2024-08-05 13:23 | WPDHOMESLEEP ---
Sleep Study - Home Unattended Date of Study: 07/20/24 Ordering Provider: Layo Waters APRN Interpreting Provider: Nell Mc, DO Home Sleep Study Type: Watch PAT Height: 1.65 m Weight: 70.307 kg Body Mass Index: 25.7 Neck Circumference (inches): 13.5 Dinosaur: 7 Reason for Sleep Study Daytime hypersomnia, snoring, difficulty staying asleep Sleep History The patient is a 53-year-old female that had a sleep study ordered by the pulmonary group for evaluation sleep apnea. she admits to snoring loudly, excessive daytime sleepiness, trouble falling asleep, trouble staying asleep and unwanted behaviors during sleep. She denies interruptions in breathing while asleep. She denies choking or gasping at night. She denies having trouble breathing on her back. She denies morning headaches. She denies having a dry or sore mouth / throat in the morning. She denies nocturnal heartburn. She urinates twice throughout the night. She does have difficulty returning to sleep if she wakes up throughout the night. She denies any hypnotic or sedative use. She denies feeling anxious about sleep. She does feel tired or sleepy during the day. She does feel tired in the morning. She denies having the urge to fall asleep during the day. She denies feeling drowsy while driving. She denies sleep paralysis, cataplexy and hypnagogic/ hypnopompic hallucinations. She does clench or grind her teeth. She does kick or jerk her legs excessively. She does have a restless feeling in her legs that causes an urge to move her legs. The restless feeling gets worse with rest but better with activity. The restless feeling is worse in the evening or at night time and does cause a disturbance in her sleep. She goes to bed at 10:00 p.m. every night. It takes her 15 minutes to fall asleep. She gets 8 hours of sleep per night. Her sleep is somewhat restorative on days off. She denies taking any planned naps. She does act out her dreams. She denies sleep walking. She consumes 1-2 cups of caffeinated beverage per day. She denies tobacco and alcohol use. She exercises 1-2 nights per week. [facility] Past Medical History Medical History Peripheral neuropathy Obstructive sleep apnea syndrome Paresthesia of upper and lower extremities of both sides Benign paroxysmal vertigo Rectal bleeding Lateral epicondylitis of right elbow Mixed hyperlipidemia Anxiety delivery delivered Carpal tunnel syndrome, bilateral upper limbs Hypothyroidism (acquired) Menometrorrhagia Seasonal allergic rhinitis Telogen effluvium Surgical History Surgical History History of cholecystectomy Family History Family History Grandparent Family history of Alzheimer's disease Mother Patient's mother is in good health Family history of alcoholism Father Patient's father is in good health Family history of alcoholism Family history of diabetes mellitus in first degree relative Sibling Patient's brother is in good health Social History Social History Smoking status: Never smoker Alcohol intake: current Alcohol use details: occasionally Substance use: current Substance use type: marijuana Other substance usage details: edibles Last use: for sleep occasionally maybe 5 per month Do You Feel Safe in your Home?: Yes Lack of Transportation: No Lack of Food: Never True Current Housing: I Have Housing Concerned About Future Housing: No Difficulty Paying Gas/Electric Bills: No Difficulty Paying for Meds: No Currently Unemployed: No Difficulty w/ Childcare or Family Care: No Living arrangements: with family Spiritual care concerns: No Medications Home Medications Medication Instructions Recorded Confirmed Type bupropion HCl 300 mg 24 hr tablet, 300 mg PO QAM #90 tabs 08/27/23 06/23/24 Rx extended release sertraline 50 mg tablet 50 mg PO DAILY #90 tabs 08/27/23 06/23/24 Rx tazarotene 0.05 % topical cream 1 applic topical DAILY PRN 08/27/23 06/23/24 History (Tazorac) psoriasis meclizine 25 mg tablet 25 mg PO TID PRN dizziness #20 tabs 12/04/23 06/23/24 Rx ondansetron 4 mg disintegrating 4 mg PO Q8H PRN nausea and 09/19/24 04/09/25 Rx tablet vomiting #14 tabs ciclopirox 8 % topical solution 1 applic topical QHS 4 weeks #6.6 04/15/24 06/23/24 Rx mL metoprolol succinate 25 mg 25 mg PO DAILY #90 tabs 04/15/24 06/23/24 Rx tablet,extended release 24 hr triamterene 37.5 See Rx Instructions .Route 05/07/24 06/23/24 Rx mg-hydrochlorothiazide 25 mg .COMPLEX #90 caps capsule Sleep Procedure The sleep study was completed using RNDOMNT a technically adequate device with seven channels: peripheral arterial tone, actigraphy, body position, snore, respiratory movement, pulse oximetry, sleep staging, and heart rate. Prior to using the device, the patient received verbal and written instructions for its application and was provided with the help desk phone number for additional telephonic instruction with 24-hour availability of qualified personnel to answer questions. The study was scored using CMS guidelines. Sleep Architecture The total recording time is 9 hrs, 47 min. The total sleep time is 8 hrs, 52 min. Sleep latency is 18 minutes. REM latency is 132 minutes. The patient had 7 episodes of waking. Sleep architecture shows 18.6% deep sleep, 51.2% light sleep, and (as % Total Sleep Time) showed NREM (Light 51.2%; Deep 18.6%), and a 30.2% stage REM. The patient spent 61.5% of total sleep time in the supine position. Sleep efficiency was 90.63. Respiratory Analysis The overall AHI (pAHI 4%:) is 1.3. The overall AHI (pAHI 3%:) is 4.1. The central AHI is 1.4. The AHI was 3.9 in NREM and 4.5 in REM sleep. The AHI was 4.8 in Supine and 3.0 in Non-supine sleep. Percent of Soham Powell respirations is 0.0. Oximetry Data The oxygen desaturation index (ISA 4%:) is 1.4. The mean saturation is 94%, and the lowest saturation is 89%. Time spent with saturation < 88% is 0.0 minutes. Snoring Profile Snoring average intensity is 40 dB. The patient snored above 45 decibels for 12.4 minutes, 2.3% of sleep time. Cardiac Profile The average pulse rate is 74 beats per minutes. The lowest pulse rate is 63 bpm. The highest pulse rate reported is 101 bpm. Atrial fibrillation was not detected. Premature beats occur 0.1 per minute. Assessment and Plan Assessment and Plan (1) Sleep disturbances: Code(s): G47.9 - Sleep disorder, unspecified Status: Acute Assessment and Plan: The patient had an overall AHI of 1.3 with desaturation down to 89%. This is not consistent with sleep disordered breathing. The patient mentioned in her sleep history that she does act out her dreams. Further evaluation is warranted. I recommend the patient have a split study with RBD montage. (2) Restless legs syndrome: Code(s): G25.81 - Restless legs syndrome Status: Acute Assessment and Plan: The patient's sleep history is highly suggestive of Restless Leg Syndrome. I recommend that the patient have a serum ferritin drawn for evaluation of iron deficiency anemia. If the patient has a serum ferritin less than 75 ng/mL, I recommend starting a daily iron supplement and a Vitamin C supplement for better absorption. If the serum ferritin is greater than 75 ng/mL, I recommend starting a dopamine agonist and titrating the dose until symptoms resolve. There are nonpharmacological methods to treat limb movements including daily exercise, stretching calf muscles before bed, avoiding excessive amounts of caffeine and alcohol, vitamin B supplementation, magnesium lotion massaged into legs before bed, and use of a weighted blanket. Data The data obtained during this sleep study is adequate for interpretation. Certification This sleep study has been reviewed by a board certified sleep medicine physician.
== END 2024-07-21 14:22 | disposition home or self-care (01) ==
LOC: ANHCSM 10:18
PROVIDERS: PCP Family Medicine; Visit Provider Nurse Practitioner Family
DX: G47.01 Insomnia due to medical condition (principal); G47.9 Sleep disorder, unspecified; G25.81 Restless legs syndrome
CPT/HCPCS: 95800

== ENCOUNTER 2025-01-27 12:31 | Outpatient (CLI) | payer BC, SELFPAY ==
--- OUTSIDE RECORDS SUMMARY | 2024-07-19 03:00 | XMS_ITS ---
Author Organization [facility] Address [address] [place], [place] [address] Care Team Providers Care Business And Financial Counsel Name Role Phone Mamta Raymundo [phone] REASON FOR VISIT 2 month f/u shobha Encounters Encounter Location Date Provider Diagnosis [facility] [address] Raymundo [address] [place] [address] 07/19/2024 Mamta Raymundo Plan Of Treatment No Information Progress Notes * Nitza BABINDOB:1970 (54 yo F)Acc No.[id number]:07/19/2024 Progress Notes Patient: Nitza Padilla Provider: Concepción Raymundo MD :1970 A ge:53 Y S ex:Female Date:07/19/2024 Address:[address], [facility] Subjective: * Chief Complaints: * 2 month f/u shobha * Electronic signature of Tarun Raymundo MD on 01/27/2025 at 01:05 PM FOAM MOLDER Sign off status: Pending * Provider: Concepción Raymundo MD Date: 0 07/19/2024 Generated for Printi ng/Faxing/eTransmitting on: 1 03/29/2024 01:05 PM FOAM MOLDER
--- OUTSIDE RECORDS SUMMARY | 2024-08-30 03:40 | XMS_ITS ---
Author Organization [facility] Address [address] [place], [place] [address] Care Team Providers Care Snuff Packing Machine Operator Name Role Phone Mamta Raymundo [facility] [phone] REASON FOR VISIT LAB FU Encounters Encounter Location Date Provider Diagnosis [facility] Ray[facility]undo [address] [place] [address] 08/30/2024 Mamta Raymundo Plan Of Treatment No Information Progress Notes * Nitza BABINDOB:1970 (54 yo F)Acc No.[id number]:08/30/2024 Progress Notes Patient: Nitza Padilla Provider: Concepción Raymundo MD :1970 A ge:53 Y S ex:Female Date:08/30/2024 [address] [facility] Subjective: * Chief Complaints: * L AB FU * Electronic signature of Tarun Raymundo MD on 01/27/2025 at 01:06 PM MACHINE MOVER Sign off status: Pending * Provider: Concepción Raymundo MD Date: 0 08/30/2024 Generated for Geoffi ng/Faxing/eTransmitting on: 1 03/29/2024 01:06 PM MACHINE MOVER
--- OUTSIDE RECORDS SUMMARY | 2024-10-04 03:00 | XMS_ITS ---
Author Organization [facility] Address [address] [place], [place] [address] Care Team Providers Care Otr Refrigerated Cdl Truck Driver Name Role Phone Mamta Raymundo Unavailable [phone] REASON FOR VISIT 3 month f/u Medications Medication SIG (Take, Route, Frequency, Duration) Notes Start Date End Date Status buPROPion HCl ER (XL) 300 MG Tablet Extended Release 24 Hour 1 tablet in the morning Orally Once a day Active Progesterone 100 MG Capsule 1 capsule at bedtime Orally Once a day; Duration: 90 days 05/10/2024 Active Vagifem 10 MCG Tablet 1 tablet Vaginal T wo times a Week; Duration: 90 days 05/10/2024 Active Triamterene Active Estradiol 0.05 MG/24HR Patch Twice Weekly 1 patch to skin Transdermal Two times a Week; Duration: 90 days 05/10/2024 Active Magnesium Active Metoprolol Succinate ER 25 MG Tablet Extended Release 24 Hour 1 tablet Orally Once a day Active Sertraline HCl 50 MG Tablet 1 tablet Ora lly Once a day Active Vitamin K2 Active Vitamin D3 Active Encounters Encounter Location Date Provider Diagnosis [facility] Raymundo [address] [place] [id number] 10/04/2024 Mamta Raymundo Plan Of Treatment No Information History and Physical Notes * HPI (History of Present Illness) Category Sub-Category Detail Notes Category Not es History of Present Illness 53 yo female comes in for follow up in management and evaluation of autoimmune thyroiditis, hormonal/perimonopausal changes, weight changes and concern for hormone imbalance. At initial visit in Apr we added estradiol patch with cream along with progesterone 100 mg daily. We provided a full hormone panel for patient to complete. Progress Notes * Nitza BABINDOB:1970 (54 yo F)Acc No.[id number]:10/04/2024 Progress Notes Patient: Nitza Padilla Provider: Concepción Raymundo MD :1970 A ge:53 Y S ex:Female Date:10/04/2024 Address[facility] [place], [place] [address] Subjective: * Chief Complaints: * 3 month f/u * HPI: H istory of Present Illness: 53 yo female comes in for follow up in management and evaluation of autoimmune thyroiditis, hormonal/perimonopausal changes, weight changes and concern for hormone imbalance. At initial visit in Apr we added estradiol patch with cream along with progesterone 100 mg daily.? We provided a full hormone panel for patient to complete. * Medications: T akingVitamin K2 Vitamin D3 Magnesium Metoprolol Succinate ER 25 MG Tablet Extended Release 24 Hour 1 tablet Orally Once a day Sertraline HCl 50 MG Tablet 1 tablet Orally Once a day buPROPion HCl ER (XL) 300 MG Tablet Extended Release 24 Hour 1 tablet in the morning Orally Once a day Triamterene Estradiol 0.05 MG/24HR Patch Twice Weekly 1 patch to skin Transdermal Two times a Week Vagifem 10 MCG Tablet 1 tablet Vaginal Two times a Week Progesterone 100 MG Capsule 1 capsule at bedtime Orally Once a day Taking Vitamin K2 Taking Vitamin D3 Taking Magnesium Taking Metoprolol Succinate ER 25 MG Tablet Extended Release 24 Hour 1 tablet Orally Once a day Taking Sertraline HCl 50 MG Tablet 1 tablet Orally Once a day Taking buPROPion HCl ER (XL) 300 MG Tablet Extended Release 24 Hour 1 tablet in the morning Orally Once a day Taking Triamterene Taking Estradiol 0.05 MG/24HR Patch Twice Weekly 1 patch to skin Transdermal Two times a Week Taking Vagifem 10 MCG Tablet 1 tablet Vaginal Two times a Week Taking Progesterone 100 MG Capsule 1 capsule at bedtime Orally Once a day * Electronic signature of Tarun Raymundo MD on 01/27/2025 at 01:05 PM SILK TOP HAT BODY MAKER Sign off status: Pending * Provider: Concepción Raymundo MD Date: 0 10/04/2024 Generated for Jennifer lopes/Janet/Angelaitting on: 03/29/2024 01:05 PM SILK TOP HAT BODY MAKER
--- NOTE | ~2025-01-27 | MM_ITS ---
EXAMINATION: MM screening corry BI w edgard HISTORY: Screening TECHNIQUE: Craniocaudal and mediolateral oblique 3-D tomosynthesis images were obtained and synthetic 2-D images were generated. CAD analysis was submitted and interpreted. COMPARISON: 10/14/2023 BREAST PARENCHYMAL COMPOSITION: Dense: The breasts are heterogeneously dense, which may obscure small masses FINDINGS: There is no evidence of suspicious mass, calcification, or architectural distortion to suggest malignancy in either breast. There has been no suspicious interval change. IMPRESSION: 1. No mammographic evidence of malignancy. 2. Recommend routine screening mammography in one year. BI-RADS Category 1: Negative Reviewed, dictated and finalized at location B. [employer] MEDICAL TECHNOLOGIST
--- OUTSIDE RECORDS SUMMARY | 2025-01-27 13:06 | XMS_ITS | Clinical Summary ---
Author Organization [facility] Address [address] [place] [id number] Care Team Providers Care Outboard System Operator Name Role Phone Angelica Bhandari MD Primary Care Provider [phone] [phone] Allergies No known active allergies Social History [...] Comments Blood Pressure 92/61 03/02/2018 10:30 AM ENGINE GENERATOR ASSEMBLER Pulse 85 03/02/2018 8:21 AM ENGINE GENERATOR ASSEMBLER Temperature 36.8 C (98.2 F) 03/02/2018 8:21 AM ENGINE GENERATOR ASSEMBLER Respiratory Rate 17 03/02/2018 8:21 AM ENGINE GENERATOR ASSEMBLER Oxygen Saturation 96% 03/02/2018 10:30 AM ENGINE GENERATOR ASSEMBLER Inhaled Oxygen Concentration - - Weight 68 kg (150 lb) 03/02/2018 8:21 AM ENGINE GENERATOR ASSEMBLER Height 165.1 cm (5' 5) 03/02/2018 8:21 AM ENGINE GENERATOR ASSEMBLER Body Mass Index 24.96 03/02/2018 8:21 AM ENGINE GENERATOR ASSEMBLER Plan of Treatment Health Maintenance Due Date [...] wi th HPV 10/25/2001 Mammogram Screening 2011 Pneumococcal Vaccine: 50+ Years (1 of 1 - PCV) 10/25/2021 Zoster Vaccines (1 of 2) 10/25/2021 COVID-19 Vaccine (1 - 2024-2 6 season) 2024 Influenza Adult (#1) 2024 01/08/2018, 12/03/2015, 11/12/2013 Hepatitis A Vaccines Aged Out 05/14/2017 No long er eligible based on patient's age to complete this topic Meningococcal B Vaccine Aged Out No l onger eligible based on patient's age to complete this topic Meningococcal Vaccine Aged Out No abilio anson eligible based on patient's age to complete this topic RSV Immunizations Under 20 Months Aged Out No longer eligible b ased on patient's age to complete this topic Insurance [facility] [address] Care Teams Outboard System Operator Relationship Specialty Start Date End Date Angelica Bhandari MD PCP - General FAMILY PRACTICE 03/02/18
--- OUTSIDE RECORDS SUMMARY | 2025-01-27 13:06 | XMS_ITS | Clinical Summary ---
Author Organization [facility] Address [address] [place] [address] Care Team Providers Care Field Human Resources Manager Name Role Phone Angelica Bhandari MD Primary Care Provider [phone] Source Comments [facility],non-owned Affiliates and Associated Physician Practices is amultiple site organization consisting of ambulatory clinics and hospital sitesin [place], [place], [place] and [place]. This disclosure is being madepursuant to the Care Everywhere program and may not contain all information available regarding this patient. Last updated 17.[facility] Allergies Active Allergy Reactions Criticality Noted Date [...] encouraged Assessment & Plan (04/14/2020 10:32 AM ESTIMATOR AND DRAFTER SUPERVISOR): None worrisome Self exams Photoprotection Family history of colonic polyps 04/23/2017 Family history of colon cancer 12/12/2016 Overview (04/14/2020): Last Assessment & Plan: Schedule colonoscopy. GI list given to pt. LUIS (stress urinary incontinence, female) 2016 Overview (04/14/2020): Last Assessment & Plan: Kegel exercises Other skilled nursing (current) drug therapy 5 Acne vulgaris 07/28/2013 Assessment & Plan (07/13/2020 12:38 PM CDT): Acne doing well Continue benzaclin prn and tazorac nightly Assessment & Plan (04/14/2020 10:32 AM ESTIMATOR AND DRAFTER SUPERVISOR): Restart tazorac cream Use benzaclin prn Immunizations Immunization Administration Dates Next Due INFLUENZA [...] on file Legal Sex Female 7:30 AM ESTIMATOR AND DRAFTER SUPERVISOR Gender Identity Not on file Sexual Orientation [...] COLON CA SCREENING 1971 LIPID TESTING 1971 HIV SCREENING 10/25/1986 HEPATITIS C SCREENING 10/21/1989 DTAP/TDAP/TD VACCINES (1 - Tdap) 10/25/1990 HEPATITIS B VACCINE (1 of 3 - 19+ 3-dose series) 10/25/1990 PAP SMEAR 10/25/1992 PNEUMOCOCCAL VACCINE 50+ (1 of 1 - PCV) 10/25/2021 ZOSTER VACCINE (1 of 2) 10/25/2021 MAMMOGRAM 05/01/2023 05/01/2021, 0207/2021, 12/29/2017, Additional history exists DEPRESSION SCREENING 03/17/2024 COVID-19 VACCINE ( season) 2024 INFLUENZA VACCINE (#1) 2024 , 11/16/2019, 01/11/2019, Additional history exists HIB VACCINE [...] patient's age to complete this topic Insurance [facility] Care Teams Field Human Resources Manager Relationship Specialty Start Date End Date Angelica Bhandari MD [address] [place] [address] PCP - General Family Medicine 04/01/23
--- OUTSIDE RECORDS SUMMARY | 2025-01-27 13:06 | XMS_ITS | Clinical Summary ---
Author Organization [facility] Address [address] [place] [address] Phone Care Team Providers Care Rn Unit Manager Name Role Phone Jany Smith MD Primary Care Provider [phone] [phone] Allergies Active Allergy Reactions Criticality Noted Date [...] year. Assessment & Plan (02/11/2018 8:03 AM COMMERCIAL ANNOUNCER): Pelvic exam and breast exam done. 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 Not on file [...] 10:34 AM CDT Height 165.1 cm (5' 5) 06/30/2023 10:34 AM CDT Body Mass Index 25.96 06/30/2023 10:34 AM CDT Plan of Treatment Health Maintenance Due Date Last Done Comments Hepatitis C Screening 1970 DTaP/Tdap/Td Vaccine (1 - Tdap) 10/25/1982 Hepatitis B Screening 10/25/1989 Cervical Cancer Screening 05/22/2021 05/22/2020 Depression Screening 05/22/2021 05/22/2020 Zoster Vaccine (1 of 2) 10/25/2021 Breast Cancer Screening-Mammogram 05/01/2022 05/01/2021, 05/01/2021, 05/01/2021, Additional history exists Regular Well Visit/Exam 18-64 06/29/2024 06/30/2023, 07/16/2021, 05/22/2020, Additional history exists Covid-19 Vaccine ( season) 2024 10/18/2020, 09/12/2020 Influenza Vaccine (#1) 2024 , 11/16/2019, 01/11/2019, Additional history exists Colon Cancer Screening-Colonoscopy 08/16/2030 08/16/2020, 07/01/2017 Pneumococcal vaccine <65 Aged Out No longer eligible based on patient's age to complete this topic Procedures Procedure Name Priority Date/Time Associated Diagnosis Comments SCREENING MAMMOGRAM 2D BILATERAL Schedule Routine, Read Routine (OP Routine) 05/01/2021 COLONOSCOPY 08/16/2020 1:42 PM CDT PAP AND HIGH RISK HPV, REFLEX TO GENOTYPING Routine 05/22/2020 2:31 PM COMMERCIAL ANNOUNCER Cervical cancer screening from Last 3 Months [...] 08/16/2020 1:42 PM Admit Type: Outpatient Room: [facility] 2 Date of : 1970 Instrument [...] the bowel preparation was evaluatedusing the BBPS ([place] Bowel Preparation Scale) withscores of: Right Colon [...] HPV, reflex to Genotyping (05/22/2020 2:31 PM COMMERCIAL ANNOUNCER) Clinical indication Comment [facility] - 01 Comment:NEGATIVE [...] (16,18,31,33,35,39,45,51,52,56,58,59,66,68) without differentiation. Swab 05/22/2020 2:31 PM COMMERCIAL ANNOUNCER 05/22/2020 Narrative [facility] - 05/24/2020 1:08 PM COMMERCIAL ANNOUNCER Performed at: 01 - [facility] [id number] [place]: Laura Kee MD, Phone: [phone] Performed at: - [facility] [id number] [place]: Laura Kee MD, Phone: [phone] Specimen Comment: [id number] Specimen Comment: No. of containers..01 ThinPrep Vial Jany Smith MD LAB CYTOLOGY ORDERABLES F inal Result [facility] - 01 LAB [facility] 02 from Last 3 Months or Most Recently Relevant to Health Maintenance Insurance [facility] CHOICE PL[facility] HMO/PPO Address[facility] [address] [place] [address] CHO[place] [facility] [place]PO [place] Advance Directives For more information, please contact: [phone] * Full Code (Latest Code Status on File) Date Activated Date Inactivated Comments 08/16/2020 1:30 PM 08/16/2020 6:53 PM * Full Code Date Activated Date Inactivated Comments 07/01/2017 11:16 AM 07/01/2017 3:12 PM Care Teams Rn Unit Manager Relationship Specialty Start Date End Date Jany Smith MD [address] [facility] [address] [address] PCP - General 08/16/20
--- OUTSIDE RECORDS SUMMARY | 2025-01-27 13:06 | XMS_ITS | Patient Health Record ---
Author Organization [facility] Address [address] [place], [place] [address] Care Team Providers Care Shed Workers Supervisor Name Role Phone Mamta Raymundo Unavailable [phone] Allergies No Known Allergies Reason For Referral No Information Medications Medication SIG (Take, Route, Frequency, Duration) Notes Start Date End Date Status Magnesium Active Metoprolol Succinate ER 25 MG Tablet Extended Release 24 Hour 1 tablet Orally Once a day Active Sertraline HCl 50 MG Tablet 1 tablet Ora lly Once a day Active buPROPion HCl ER (XL) 300 MG Tablet Extended Release 24 Hour 1 tablet in the morning Orally Once a day Active Progesterone 100 MG Capsule 1 capsule at bedtime Orally Once a day; Duration: 90 days 05/10/2024 Active Vitamin K2 Active Vitamin D3 Active Vagifem 10 MCG Tablet 1 tablet Vaginal T wo times a Week; Duration: 90 days 05/10/2024 Active Triamterene Active Estradiol 0.05 MG/24HR Patch Twice Weekly 1 patch to skin Transdermal Two times a Week; Duration: 90 days 05/10/2024 Active Social History Section Notes: Caffeine: yes, daily, coffee Problems Problem Type SNOMED Code ICD Code Onset Dates Problem Status W/U Status Risk Notes Problem Autoimmune thyroiditis (60383264) Autoimmune thyroiditis (E06.3) Active confirmed Problem Vitamin D deficiency (19887586) Vitamin D deficiency, unspecified (E55.9) Active confirmed Problem Menopause (906401189) Menopausal and female climacteric states (N95.1) Active confirmed Vital Signs Heart Rate 96 /min 05/10/2024 Height-cm 165.1 cm 05/10/2024 Oximetry 94 % 05/10/2024 Blood pressure diastolic 73 mm Hg 05/10/2024 Weight-kg 71.76 kg 05/10/2024 Height 65 in 05/10/2024 Blood pressure systolic 114 mm Hg 05/10/2024 Weight 158.2 lbs 05/10/2024 BMI 26.32 kg/m2 05/10/2024 Encounters Encounter Location Date Provider Diagnosis [facility] Raymundo [address] [place] [address] 05/10/2024 Mamta Raymundo Autoimmune thyroidit is E06.3 ; Menopausal and female climacteric states N95.1 ; Vitamin D deficiency, unspecified E55.9 and Other fatigue R53.83 [facility] [id number] [place] [id number] 10/03/2024 Mamta Raymundo Assessments Encounter Date Diagnosis (ICD Code) Assessment Notes Treatment Notes Treatment Clinical Notes Section Notes 05/10/2024 Autoimmune thyroiditis (ICD-10 - E06.3) 05/10/2024 Menopausal and female climacteric states (ICD-10 - N95.1) 05/10/2024 Vitamin D deficiency, unspecified (ICD-10 - E55.9) 05/10/2024 Other fatigue (ICD-10 - R53.83) 05/10/2024 Other Assessment and Plan: Menopausal symptomsPatient reports amenorrhea for approximately one year, with a previous episode of prolonged bleeding that resolved spontaneously. Experiences vaginal dryness and pain during intercourse, but no hot flashes. Recent gynecological ultrasound and biopsy were normal. Initiate hormone replacement therapy: Estrogen patch: Apply twice weekly Vaginal estrogen cream: Apply twice weekly Progesterone 100 mg vaginal capsule: Insert at bedtime every night Prescribe Viagra for husbandFollow up in 6-8 weeks Thyroid dysfunctionPatient previously took thyroid supplements but discontinued them. Current thyroid status is unclear due to lack of recent blood work. Order thyroid function tests, including thyroid antibodies Defer labs for 4 weeks due to recent steroid useFollow up after lab results Depression and anxietyPatient reports ongoing depression, lack of motivation, and mood swings despite current treatment with sertraline. Seasonal depression worsens in winter months. Continue sertraline Consider adjusting antidepressant regimen at follow-up based on symptom response Recommend planning winter vacations to mitigate seasonal depression Neurological symptomsPatient reports tingling pain in thigh, hand tremors, and muscle weakness in one leg. Recent cervical MRI showed arthritis. Lumbar MRI results pending. Review pending lumbar MRI results Await neurologist consultation and nerve conduction study results Consider brain MRI if not already ordered by neurologistFollow up after neurology evaluation InflammationPatient reports recent improvement in joint pain, hip pain, and hand swelling while on a short course of steroids. Order inflammatory markers after 4-week washout period from recent steroid use Evaluate lab results at follow-up appointment Gastrointestinal symptomsPatient describes alternating constipation and diarrhea with occasional cramping and urgency, suggestive of possible irritable bowel syndrome. Continue magnesium supplementation as needed Monitor symptoms and reassess at follow-up Visual changesPatient reports difficulty seeing things, but has not had a recent eye examination. Recommend ophthalmology evaluationFollow up on results at next appointment Spent 45 minutes preparing to see the patient (ex review of tests/chart), obtaining and / or reviewing separately obtained history, performing a medically appropriate examination and/or evaluation, counseling and educating the patient/family/caregiv er, ordering medications, tests, or procedures, referring and communicating with other health resident care associate, documenting clinical information in the electronic or other health record, independently interpreting results and communicating results to the patient/family/caregiv er and care coordinating patient plan. Patient alert and oriented x 4 and aware of discussion noted above and in agreeance to plan in management of autoimmune thyroiditis, perimenopausal changes, vit D def and fatigue. Plan Of Treatment No Information Insurance Providers Payer Name Payer Address Payer Phone Subscriber Number Group Number Insured Name Patient Relationship to Insured Coverage Start Date Coverage End Date [facility] [address] [place] [address] [id number] Nitza Babin Self - patient is the insured Medical (General) History Medical History History ICD Code hyperthyroidism fatigue depression joint pain brain fog vision loss vertigo Surgical History Surgery Date(Month/Year) cholecystectomy x2
--- OUTSIDE RECORDS SUMMARY | 2025-01-27 13:06 | XMS_ITS | Clinical Summary ---
Author Organization [facility] Address [address] [place] [address] Phone Care Team Providers Care Technology Applications Engineer Name Role Phone Anurag Bhandari MD Primary Care Provider [phone] Allergies No known active allergies Medications ERGOCALCIFEROL, VITAMIN D2, (VITAMIN D ORAL) Take by mouth. Active Active Problems Patient Care Coordination No te Formatting of this note migh t be different from the original. Primary Care: Anurag Bhandari MD Referring Provider: Jany Smith MD [address] [place] [address] Other: Problem Noted Date Diagnosed Date Fibroadenoma [...] on file Legal Sex Female 5:47 AM DOUPER Gender Identity Not on file Sexual Orientation [...] 36.7 C (98.1 F) 04/09/2012 12:57 PM DOUPER Respiratory Rate 16 04/09/2012 12:57 PM DOUPER Oxygen Saturation 100% 04/09/2012 12:57 PM DOUPER Inhaled Oxygen Concentration - - Weight 67.2 kg (148 lb 3.2 oz) 11/20/2018 10:21 AM CDT Height 165.1 cm (5' 5) 11/20/2018 10:21 AM CDT Body Mass Index [...] 12/29/2017, Additional history exists INFLUENZA VACCINE (#1) 2024 0, 01/11/2019, 01/11/2019, Additional history exists Procedures Procedure Name Priority Date/Time Associated Diagnosis Comments MAMMO 3D RASHI SCREEN BILAT W OR WO CAD Routine 05/01/2021 10:09 AM DOUPER Visit for screening mammogram from Last 3 Months or Most Recently Relevant to Health Maintenance Results * MAMMO SCRN BILAT 3D RASHI W OR WO CAD (05/01/2021 10:09 AM DOUPER) Anatomical Region Laterality Modality Breast Bilateral Mammography 05/01/2021 10:0 9 AM DOUPER Impressions 05/01/2021 3:54 PM DOUPER IMPRESSION: Negative bilateral screening mammogram. Recommend routine followup. OVERALL FINAL ASSESSMENT: BI-RADS CATEGORY 1: Negative DICTATION LOCATION: [facility] Narrative 05/01/2021 3:54 PM DOUPER BILATERAL SCREENING DIGITAL MAMMOGRAM WITH 3D TOMOSYNTHESIS [...] ASSESSMENT: BI-RADS CATEGORY 1: Negative DICTATION LOCATION: [facility] us Jany Smith MD MAMMO ORDERABLES Final Resul t from Last 3 Months or Most Recently Relevant to Health Maintenance Insurance [facility] [id number] OUT OF NETWORK Member Subscriber Plan / Payer (Ef fective 2024-Present) Name:Nitza Babin Relation to Subscriber:Self Name:Nitza Babin Payer ID:[id number] (NAIC) Group ID:Not on file Type:EPO Address: [place] [id number] Advance Directives For more information, please contact: [phone] * Full Code (Latest Code Status on File) Date Activated Date Inactivated Comments 04/09/2012 9:19 AM 04/09/2012 3:00 PM Care Teams Technology Applications Engineer Relationship Specialty Start Date End Date Anurag Bhandari MD PCP - General Family Practice 08/23/14
== END 2025-01-27 12:32 | disposition home or self-care (01) ==
PROVIDERS: PCP Family Medicine; Visit Provider Family Medicine
DX: Z12.31 Encounter for screening mammogram for malignant neoplasm of breast (principal)
CPT/HCPCS: 77063; 77067